=== PATIENT | female | born 1940 | race Caucasian/White ===

== ENCOUNTER → 2017-09-20 15:25 | Outpatient (CLI) | payer MEDICARE, OTHER, SELFPAY ==
[2017-09-20 19:03] LABS: Free T3 2.1 pg/mL (2.18-3.98); T4 Free Direct 1.22 ng/dL (0.76-1.46); Thyroid Stim Hormone (TSH) 0.92 uIU/mL (0.358-3.74)
== END ==
PROVIDERS: Family Provider Family Medicine; PCP Family Medicine
DX: E34.9 Endocrine disorder, unspecified (principal); E55.9 Vitamin D deficiency, unspecified; R53.83 Other fatigue
CPT/HCPCS: 36415; 84439; 84443; 84481

== ENCOUNTER → 2017-12-03 16:08 | Outpatient (CLI) | payer MEDICARE, OTHER, SELFPAY ==
[2017-12-03 17:57] LABS: Free T3 2.5 pg/mL (2.18-3.98); Magnesium 2.1 mg/dL (1.6-2.6); T4 Free Direct 1.07 ng/dL (0.76-1.46); Thyroid Stim Hormone (TSH) 1.02 uIU/mL (0.358-3.74); Vitamin B12 865 pg/mL (211-911); Vitamin D,25 Hydroxy 31.6 ng/mL (29.95-100.01)
== END ==
PROVIDERS: Family Provider Family Medicine; PCP Family Medicine
DX: E34.9 Endocrine disorder, unspecified (principal); E55.9 Vitamin D deficiency, unspecified; R53.83 Other fatigue
CPT/HCPCS: 36415; 82306; 82607; 83735; 84439; 84443; 84481

== ENCOUNTER → 2018-01-16 10:49 | Outpatient (CLI) | payer MEDICARE, OTHER, SELFPAY ==
[2018-01-16 11:57] LABS: Absolute Lymphocyte Count 1.23 X10^3/ul (0.83-4.51); Absolute Neutrophil Count 1.9 X10^3/uL (2.0-7.7); Basophil# 0.02 X10^3/uL; Basophil% 0.5 % (0-1); Eosinophil# 0.17 X10^3/uL; Eosinophils% 4.5 % (0-5); Hematocrit 39.2 % (37-47); Hemoglobin 12.4 g/dl (12.0-15.0); Lymphocyte # 1.23 X10^3/ul (4.0); Lymphocyte % 32.4 % (19-41); Mean Corp Hgb Conc 31.6 g/gl (32-36); Mean Corpuscular Volume 101.3 fL (81-99); Mean Platelet Vol. 11.4 fl (6.2-12.0); Monocyte# 0.52 X10^3/uL; Monocyte% 13.7 % (0-10); Neutrophil # 1.86 X10^3/uL (2.7-7.7); Neutrophil % 48.9 % (47-70); Platelet Count 139 K/mm3 (150-450); RBC Distribution Width CV 12.2 % (11.6-14.6); RBC Distribution Width SD 44.8 fl (35.1-43.9); Red Blood Count 3.87 M/mm3 (4.2-5.4); White Blood Count 3.8 K/mm3 (4.4-11.0)
[2018-01-16 12:03] LABS: POSITIVE COUNT NO; POSITIVE DIFFERENTIAL NO; POSITIVE MORPHOLOGY NO
[2018-01-16 12:09] LABS: Anion Gap 6 (5-15); BUN 15 mg/dL (7-18); Chloride 106 mmol/L (98-107); Creatinine, Serum 0.94 mg/dL (0.55-1.02); EST Glomerular Filtration Rate 61 mL/min (>60); Est Glom Filt Rate - Afr Amer 74 mL/min (>60); Glucose 97 mg/dL (74-106); Potassium 4.2 mmol/L (3.5-5.1); Sodium Level 141 mmol/L (136-145)
== END ==
PROVIDERS: Family Provider Family Medicine; PCP Family Medicine; Visit Provider Family Medicine
DX: R73.03 Prediabetes (principal); R00.2 Palpitations
CPT/HCPCS: 36415; 80048; 85025

== ENCOUNTER → 2018-02-15 14:57 | Outpatient (CLI) | payer MEDICARE, OTHER, SELFPAY ==
[2018-02-15 17:49] LABS: Absolute Lymphocyte Count 1.08 X10^3/ul (0.83-4.51); Absolute Neutrophil Count 2.3 X10^3/uL (2.0-7.7); Basophil# 0.02 X10^3/uL; Basophil% 0.5 % (0-1); Eosinophil# 0.18 X10^3/uL; Eosinophils% 4.5 % (0-5); Hematocrit 38.1 % (37-47); Hemoglobin 12.3 g/dl (12.0-15.0); Lymphocyte # 1.08 X10^3/ul (4.0); Lymphocyte % 27.2 % (19-41); Mean Corp Hgb Conc 32.3 g/gl (32-36); Mean Corpuscular Hgb 33.2 pg (27.0-32.0); Mean Platelet Vol. 11.8 fl (6.2-12.0); Monocyte# 0.43 X10^3/uL; Monocyte% 10.8 % (0-10); Neutrophil # 2.26 X10^3/uL (2.7-7.7); Platelet Count 125 K/mm3 (150-450); RBC Distribution Width CV 11.7 % (11.6-14.6); RBC Distribution Width SD 43.1 fl (35.1-43.9)
[2018-02-15 18:06] LABS: POSITIVE COUNT NO; POSITIVE DIFFERENTIAL NO; POSITIVE MORPHOLOGY NO
== END ==
PROVIDERS: Visit Provider Family Medicine
DX: D61.818 Other pancytopenia (principal)
CPT/HCPCS: 36415; 85025

== ENCOUNTER → 2018-04-08 14:15 | Outpatient (CLI) | payer MEDICARE, OTHER, SELFPAY ==
[2018-04-08 15:33] LABS: Absolute Lymphocyte Count 1.16 X10^3/ul (0.83-4.51); Basophil# 0.01 X10^3/uL; Basophil% 0.3 % (0-1); Eosinophil# 0.16 X10^3/uL; Eosinophils% 4.2 % (0-5); Hemoglobin 12.9 g/dl (12.0-15.0); Lymphocyte # 1.16 X10^3/ul (4.0); Lymphocyte % 30.4 % (19-41); Mean Corp Hgb Conc 32.3 g/gl (32-36); Mean Corpuscular Hgb 32.9 pg (27.0-32.0); Mean Platelet Vol. 12.1 fl (6.2-12.0); Monocyte# 0.47 X10^3/uL; Monocyte% 12.3 % (0-10); Neutrophil # 2.02 X10^3/uL (2.7-7.7); Neutrophil % 52.8 % (47-70); Platelet Count 129 K/mm3 (150-450); RBC Distribution Width CV 11.8 % (11.6-14.6); Red Blood Count 3.92 M/mm3 (4.2-5.4); White Blood Count 3.8 K/mm3 (4.4-11.0)
[2018-04-08 15:34] LABS: POSITIVE COUNT NO; POSITIVE DIFFERENTIAL NO; POSITIVE MORPHOLOGY NO
[2018-04-08 16:06] LABS: Vitamin B12 1867 pg/mL (211-911); Vitamin D,25 Hydroxy 45.4 ng/mL (29.95-100.01)
== END ==
PROVIDERS: Family Provider Family Medicine; PCP Family Medicine; Visit Provider Family Medicine
DX: D61.818 Other pancytopenia (principal); E34.9 Endocrine disorder, unspecified; E55.9 Vitamin D deficiency, unspecified; R53.83 Other fatigue
CPT/HCPCS: 36415; 82306; 82607; 82746; 85025

== ENCOUNTER → 2018-06-27 15:28 | Outpatient (CLI) | payer MEDICARE, OTHER, SELFPAY ==
[2018-06-27 17:15] LABS: Absolute Lymphocyte Count 1.14 X10^3/ul (0.83-4.51); Absolute Neutrophil Count 2.9 X10^3/uL (2.0-7.7); Basophil# 0.02 X10^3/uL; Basophil% 0.4 % (0-1); Eosinophil# 0.25 X10^3/uL; Eosinophils% 5.2 % (0-5); Hematocrit 39.4 % (37-47); Hemoglobin 12.7 g/dl (12.0-15.0); Lymphocyte # 1.14 X10^3/ul (4.0); Lymphocyte % 23.8 % (19-41); Mean Corp Hgb Conc 32.2 g/gl (32-36); Mean Corpuscular Hgb 32.8 pg (27.0-32.0); Mean Corpuscular Volume 101.8 fL (81-99); Mean Platelet Vol. 11.4 fl (6.2-12.0); Monocyte# 0.49 X10^3/uL; Monocyte% 10.2 % (0-10); Neutrophil % 60.4 % (47-70); Platelet Count 151 K/mm3 (150-450); RBC Distribution Width SD 44.4 fl (35.1-43.9); Red Blood Count 3.87 M/mm3 (4.2-5.4); White Blood Count 4.8 K/mm3 (4.4-11.0)
[2018-06-27 17:17] LABS: POSITIVE COUNT NO; POSITIVE DIFFERENTIAL NO; POSITIVE MORPHOLOGY NO
[2018-06-27 17:31] LABS: Free T3 2.3 pg/mL (2.18-3.98); T4 Free Direct 1.18 ng/dL (0.76-1.46); Thyroid Stim Hormone (TSH) 0.93 uIU/mL (0.358-3.74)
== END ==
PROVIDERS: Family Provider Family Medicine; PCP Family Medicine
DX: D72.819 Decreased white blood cell count, unspecified (principal); D69.6 Thrombocytopenia, unspecified; E34.9 Endocrine disorder, unspecified; E55.9 Vitamin D deficiency, unspecified; R53.83 Other fatigue
CPT/HCPCS: 36415; 84439; 84443; 84481; 85025

== ENCOUNTER → 2018-09-12 12:08 | Outpatient (CLI) | payer MEDICARE, OTHER, SELFPAY ==
[2018-09-12 13:35] LABS: ALB/GLOB Ratio 1.2 RATIO (0.9-2.4); AST(SGOT) 20 U/L (15-37); Alanine Aminotransfer ALT/SGPT 29 U/L (13-56); Albumin, Serum 3.6 g/dL (3.2-5.0); Alkaline Phosphatase 68 U/L (45-117); Anion Gap 5 (5-15); BUN 17 mg/dL (7-18); BUN/Creat Ratio 18.4 RATIO (10-20); Calcium,Total 8.8 mg/dL (8.5-10.1); Chloride 109 mmol/L (98-107); Creatinine, Serum 0.92 mg/dL (0.55-1.02); EST Glomerular Filtration Rate 62 mL/min (>60); Est Glom Filt Rate - Afr Amer 75 mL/min (>60); Glucose 97 mg/dL (74-106); Potassium 4.1 mmol/L (3.5-5.1); Protein, Total 6.6 g/dL (6.4-8.2); Sodium Level 143 mmol/L (136-145)
[2018-09-13 16:08] LABS: Folate, Hemolysate Test 333.8 ng/mL (Not Estab.); Folate, RBC (Hct) Test 38.2 % (34.0-46.6)
[2018-09-13 17:11] LABS: Folates, RBC Test 874 ng/mL (>498)
== END ==
PROVIDERS: Family Provider Family Medicine; PCP Family Medicine
DX: E34.9 Endocrine disorder, unspecified (principal); E55.9 Vitamin D deficiency, unspecified; R53.83 Other fatigue
CPT/HCPCS: 36415; 80053; 82747; 85014

== ENCOUNTER → 2019-06-09 | Outpatient (CLI) | payer MEDICARE, OTHER, SELFPAY ==
[2019-06-09 11:43] LABS: Absolute Lymphocyte Count 1.01 X10^3/uL (0.83-4.51); Absolute Neutrophil Count 1.7 X10^3/uL (2.0-7.7); Basophil# 0.02 X10^3/uL; Basophil% 0.6 % (0-1); Eosinophil# 0.13 X10^3/uL; Hematocrit 39.9 % (37-47); Hemoglobin 12.8 g/dL (12.0-15.0); Lymphocyte # 1.01 X10^3/ul (4.0); Lymphocyte % 30.7 % (19-41); Mean Corp Hgb Conc 32.1 g/dL (32-36); Mean Corpuscular Volume 102.8 fL (81-99); Mean Platelet Vol. 10.9 fl (6.2-12.0); Monocyte% 12.2 % (0-10); NRBC Flagged by Analyzer 0 % (0-5); Neutrophil # 1.72 X10^3/uL (2.7-7.7); Neutrophil % 52.2 % (47-70); Platelet Count 129 K/mm3 (150-450); RBC Distribution Width CV 11.8 % (11.6-14.6); RBC Distribution Width SD 44.5 fl (35.1-43.9); Red Blood Count 3.88 M/mm3 (4.2-5.4); White Blood Count 3.3 K/mm3 (4.4-11.0)
[2019-06-09 12:24] LABS: Vitamin B12 730 pg/mL (211-911); Vitamin D,25 Hydroxy 30.1 ng/mL (29.95-100.01)
[2019-06-09 13:59] LABS: ALB/GLOB Ratio 1.1 RATIO (0.9-2.4); AST(SGOT) 23 U/L (15-37); Alanine Aminotransfer ALT/SGPT 31 U/L (13-56); Albumin, Serum 3.5 g/dL (3.2-5.0); Alkaline Phosphatase 69 U/L (45-117); Anion Gap 7 (5-15); BUN 16 mg/dL (7-18); BUN/Creat Ratio 17.9 RATIO (10-20); Calcium,Total 8.8 mg/dL (8.5-10.1); Chloride 110 mmol/L (98-107); EST Glomerular Filtration Rate 65 mL/min (>60); Est Glom Filt Rate - Afr Amer 78 mL/min (>60); Estradiol 17.3 pg/mL; Follicle Stimulating Hormone 71.9 mIU/mL; Free T3 2.3 pg/mL (2.18-3.98); Globulin 3.3 g/dL (2.2-4.2); Glucose 102 mg/dL (74-106); Protein, Total 6.8 g/dL (6.4-8.2); Sodium Level 143 mmol/L (136-145); Thyroid Stim Hormone (TSH) 1.36 uIU/mL (0.358-3.74)
[2019-06-10 09:58] LABS: Thyroid Peroxidase AB 24 IU/mL (0-34)
== END | disposition home or self-care (01) ==
LOC: LAB 11:08
PROVIDERS: Family Provider Family Medicine; PCP Family Medicine
DX: E34.9 Endocrine disorder, unspecified (principal); E55.9 Vitamin D deficiency, unspecified; R53.83 Other fatigue
CPT/HCPCS: 36415; 80053; 82306; 82607; 82670; 83001; 84403; 84439; 84443; 84481; 85025; 86376

== ENCOUNTER 2019-07-21 11:30 | Outpatient (RCR) | payer MEDICARE, OTHER, SELFPAY ==
--- NOTE | 2019-06-25 11:33 | HP.PTEVAL_ITS ---
Patient's Visit Information MARY ZUNIGA is a 78 year old F referred to Physical Therapy by Anand Yoon DO with a diagnosis of R knee OA, R hip OA, lumbar DDD. Date of Evaluation: 06/25/19 Physical Therapist: Yariel Christianson DPT - Visit Plan Frequency: 2x /Week Duration: 6 Weeks Plan: Pt. - Subjective Findings: Pt. is here today for her initial evaluation with diagnosis of R hip OA, R knee OA, and lumbar DDD. Pt. reports having increased pain in both R knee and hip, mostly with getting up and down from chair, and stair negotation. She is having increased pain with sleeping and does wake her up. Pt. denies N/T. Occassional anterior parmar pain. Pt. does have some back pain, dealing with this for many years. Pt. denies any giving out of her legs. Pt. does not use an AD. She is using OTC pain meds with minimal relief. Pt. is hopeful reduce her symptoms in order to get back to all household activites and ADLs without limitations. - Pain R knee Pain Intensity (Out of 10): 0 Pain Intensity Range: 0, 2 R hip Pain Intensity (Out of 10): 2 Pain Intensity Range: 3 Lumbar spine Pain Intensity (Out of 10): 0 Pain Intensity Range: 0, 2 - Objective POSTURE: Pt. has sligth L lateral lean, no lateral shit noted. Pt. has increased wt. shift to L side. PALPATION: Pt. has increased tenderness at R anterior knee and medial joint line. Pt. at lumbar spine including L2-L5, mild tenderness at R piriformis. NO anterior hip pain. NEURO: Pt. has normal sensation adn normal DTR of BLEs. ROM: R knee 0-3-119deg, L knee 0-0-125deg. R hip- flexion 110deg mild increase NW, IR 30deg NE, ER 45deg mild icnrease NW, ext 15deg NE. Lumbar spine- flexion mod loss increase NW, extension mod loss increase NW, SB min loss L NE, SB R mod loss increase NW, rotation min loss bilat NE. Marked tightness n oted throughout B HS. ahd R hip piriformis. MMT: R LE- ankle 5/5 throughout; R knee- ext 4+/5 increase NW, flexion 4/5 NER hip- flexion 4/5, abd 4-/5, ext 4/5; Core- poor. LLE- 4+/5 throuhgout no pain. GAIT: PT. ambulates without AD, but has increased antalgic pattern during R stances phase with trunk sway to R during stance phase. STAIRS: R hip pain with loading ascending, R knee pain with loading descending. - Goals Goal 1:: Pt. to be I with HEP. Goal Time Frame: 4-6 Weeks Goal 2:: Pt. to have increased RLE adn core strength increased by 1/2 grade. Goal Time Frame: 4-6 Weeks Goal 3:: Pt. to have increased lumbar ROM by 25% in all directions without increase in symptoms. Goal Time Frame: 4-6 Weeks Goal 4:: Pt. to to ambulate without increase in symtoms for unlimited distances. Goal Time Frame: 4-6 Weeks Goal 5:: Pt. to sleep throughout the night without increase in symptoms. Goal Time Frame: 4-6 Weeks Goal 6:: Pt. to negotiate 1 flight of stairs with reciprocal pattern with 1 HR withotu increase in symptoms. Goal Time Frame: 4-6 Weeks - Rehabilitation Potential Physical Therapy Diagnosis: Pt. has signs and symptoms consistent with R knee OA, R hip OA, lumbar DDD. Pt. has RLE waekness, core weakness, difficulty with gait, decreased lunmbar ROM, Pt. has increasd pain with lumbar flexion, upright posture improves her symptoms. Pt. would benefit from PT to increase RLE and core strength, improve her her lumbar ROM. Rehabilitation Potential: Good - Anticipated Interventions Patient/Client Instruction: Educate patient on: Condition, Plan of Care, Risk Factors, Benefits of Fitness Program For the Purpose of:: To foster healthy habits, To improve decision making, To facilitate caregiver knowledge, To improve self management, To prevent re- injury, To improve ability to perform tasks related to life management, To improve tolerance to ADL's Therapeutic Exercise to Include: Strength training, Power training, Body mechanics, Postural training, Gait and locomotor training, Passive ROM, Active ROM, Dynamic Lumbar Stabilization, Madisyn Exercises For the Purpose of:: To decrease pain, To decrease swelling/inflammation, To increase ROM, To improve nutrient delivery to tissue, To increase oxygenation perfusion, To improve muscle performance and motor function, To improve ability to perform ADL's, To improve gait and locomotor functions, To improve health of tissue, To decrease soft tissue restriction, To increase flexibility/ROM Manual Therapy Techniques to Include: Mobilization, Passive ROM, Soft tissue mobilization For the Purpose of:: To decrease pain, To decrease swelling/inflammation, To increase ROM, To improve nutrient delivery to tissue, To increase oxygenation perfusion, To improve muscle performance and motor function Ultrasound (thermal/non thermal): Yes For the Purpose of:: To decrease pain, To decrease swelling/inflammation, To increase ROM, To improve nutrient delivery to tissue, To increase oxygenation perfusion, To improve muscle performance and motor function Thank you for the opportunity to evaluate your patient. For Medicare and Medicare HMO plans, please review the plan of care and approve it. It will need to be FAXED BACK to us at [phone] for Medicare purposes. For Medicare only, by signing this I certify the plan of care. Please let me know if there are questions or concerns regarding this plan of care. Physician Signature: Date:
== END 2019-07-21 19:00 | disposition home or self-care (01) ==
LOC: PT 11:30
PROVIDERS: Family Provider Family Medicine; PCP Family Medicine; Referring Provider Orthopaedic Surgery; Visit Provider Orthopaedic Surgery
DX: M16.11 Unilateral primary osteoarthritis, right hip (principal); M17.11 Unilateral primary osteoarthritis, right knee; M51.36 Other intervertebral disc degeneration, lumbar region
CPT/HCPCS: 97110; 97161

== ENCOUNTER → 2019-07-22 06:17 | Outpatient (CLI) | payer MEDICARE, OTHER, SELFPAY ==
[2019-06-26 10:07] VITALS: BMI 28.3
--- NOTE | 2019-07-22 06:18 | ECHOD_ITS ---
Reason For Study: DYSPNEA/SOB Procedure This was a 2D Doppler, Color Flow transthoracic echocardiogram. Exam performed in department. Left Ventricle Normal LV size. Mid cavitary false tendon noted. Left ventricular systolic function is normal. The estimated ejection fraction is 60 %. No regional wall motion abnormalities noted. Right Ventricle Normal RV size. Normal systolic function. Atria The left atrium is mildly enlarged. Normal right atrium. No doppler evidence for ASD. Mitral Valve There is no mitral annular calcification. Normal mitral valve. Trivial mitral valve insufficiency. Tricuspid Valve Normal tricuspid valve. Mild tricuspid valve insufficiency. Aortic Valve Trisinus/trileaflet aortic valve. Normal aortic valve. Trivial eccentric aortic valve insufficiency. Pulmonic Valve The pulmonic valve is not well visualized. Great Vessels Normal sized aortic root. Pericardium/Pleural No pericardial effusion. MMode/2D Measurements & Calculations LVIDd: 4.5 cm IVSd: 0.78 cm Ao root diam: 3.4 cm LVIDs: 2.9 cm LVPWd: 0.89 cm RVDd: 3.2 cm FS: 35.4 % LAV(MOD-bp): 64.5 ml LA A4 area: 19.7 cm2 LA dimension(2D): 3.1 cm LAV(MOD-bp) Indexed: 33.3 ml/m2 LAV(MOD-sp2): 68.0 ml LAV(MOD-sp4): 58.0 ml RA A4 area: 14.3 cm2 Time Measurements MV dec time: 0.23 sec Doppler Measurements & Calculations MV E max mulugeta: 93.9 cm/sec Lat Peak E' Mulugeta: 11.2 cm/sec Med Peak E' Mulugeta: 10.0 cm/sec MV A max mulugeta: 79.5 cm/sec E/E' lat: 8.4 E/E' med: 9.4 MV E/A: 1.2 Ao V2 max: 132.7 cm/sec LV V1 max: 120.9 cm/sec PA V2 max: 77.6 cm/sec Ao max P.0 mmHg LV V1 max P.9 mmHg Interpretation Summary Left ventricular systolic function is normal. The estimated ejection fraction is 60 %. Mid cavitary false tendon noted. The left atrium is mildly enlarged. Trivial mitral valve insufficiency. Mild tricuspid valve insufficiency. Trivial eccentric aortic valve insufficiency. Transmitral diastolic flow velocities suggest diastolic dysfunction (pseudonormal pattern). Ordering Physician: Mohinder Lerma Referring Physician: Joce Rangel Performed By: Nikki Bonilla, MONIQUE, RVT
--- NOTE | 2019-07-22 11:17 | STRESSREP ---
Stress Test Report Date: 07-22-19 Procedure: Exercise tolerance test/imaging study Indications: Chest pain Consent: Per the patient Procedure: The patient exercised on a Suman protocol for 7 minutes and 30 seconds completing Stage II and 1 minute and 30 seconds of Stage III achieving a peak heart rate of 126 bpm (88 % predicted maximal heart rate) with a peak blood pressure 140/80 mmHg and a peak MET capacity of 9 METs. The baseline ECG demonstrated sinus rhythm with PACs. The peak exercise ECG demonstrated somatic/motion artifact with no obvious ECG changes. There were occasional PACs pretest, during exercise, and recovery. The functional capacity was considered good. There was no complaint of chest discomfort during exercise or recovery. The examination was discontinued secondary to dyspnea. Impression: 1. Technically adequate (percent predicted maximal heart rate greater than 85%) exercise tolerance test 2. Peak exercise ECG with somatic/motion artifact with no obvious ECG changes 3. There were occasional PACs pretest, during exercise, and recovery 4. Nuclear images pending Myocardial perfusion imaging study: Technique: The patient was injected with 11.8 mCi of technetium 99m Cardiolite and subsequently rest SPECT Cardiolite nuclear imaging was obtained in the horizontal long, vertical long, and short axis views. The patient exercised on a Suman protocol for 7 minutes and 30 seconds completing Stage II and 1 minute and 30 seconds of Stage III achieving a peak heart rate of 126 bpm (88 % predicted maximal heart rate) with a peak blood pressure 140/80 mmHg and a peak MET capacity of 9 METs. The patient was injected with 34.1 mCi of technetium 99m Cardiolite and subsequently stress SPECT Cardiolite nuclear imaging was obtained in the horizontal long, vertical long, and short axis views. A gated Cardiolite study at peak stress was obtained. Interpretation: Rest and stress SPECT Cardiolite nuclear imaging status post realignment and normalization demonstrates the appearance of relative uniform tracer uptake and myocardial perfusion appearing within normal limits. There is end systolic thickening and brightening. The gated Cardiolite study demonstrates myocardial thickening and inward wall motion. The reported LVEF is 77 %. Impression: 1. Rest and stress SPECT Cardiolite nuclear imaging demonstrate relative uniform tracer uptake and myocardial perfusion appearing within normal limits. 2. The gated Cardiolite study reports an LVEF of 77 %. This note was generated with [employer] software. It may contain incorrect words, spelling, and punctuation that were not noted in checking the note before signing.
== END ==
PROVIDERS: Family Provider Family Medicine; PCP Family Medicine; Referring Provider Internal Medicine Cardiovascular Disease; Visit Provider Internal Medicine Cardiovascular Disease
DX: R07.9 Chest pain, unspecified (principal); R06.09 Other forms of dyspnea
CPT/HCPCS: 78452; 93017; 93306; A9500; A4216

== ENCOUNTER → 2019-09-11 | Outpatient (CLI) | payer MEDICARE, OTHER, SELFPAY ==
[2019-06-26 10:07] VITALS: BMI 28.3
[2019-09-11 17:24] LABS: Absolute Lymphocyte Count 0.95 X10^3/uL (0.83-4.51); Absolute Neutrophil Count 2.6 X10^3/uL (2.0-7.7); Basophil# 0.02 X10^3/uL; Basophil% 0.5 % (0-1); Eosinophils% 2.4 % (0-5); Hematocrit 40.2 % (37-47); Hemoglobin 12.9 g/dL (12.0-15.0); Immature Platelet Fraction 5.6 % (1.0-7.9); Lymphocyte # 0.95 X10^3/ul (4.0); Lymphocyte % 22.7 % (19-41); Mean Corp Hgb Conc 32.1 g/dL (32-36); Mean Corpuscular Hgb 33.2 pg (27.0-32.0); Mean Corpuscular Volume 103.3 fL (81-99); Mean Platelet Vol. 11.7 fl (6.2-12.0); Monocyte# 0.55 X10^3/uL; Monocyte% 13.2 % (0-10); NRBC Flagged by Analyzer 0 % (0-5); Neutrophil # 2.55 X10^3/uL (2.7-7.7); Platelet Count 119 K/mm3 (150-450); RBC Distribution Width CV 11.5 % (11.6-14.6); RBC Distribution Width SD 43.3 fl (35.1-43.9); RET-HE 36.6 pg (30-35); Red Blood Count 3.89 M/mm3 (4.2-5.4); Reticulocyte Count 1.02 % (0.5-1.5); White Blood Count 4.2 K/mm3 (4.4-11.0)
[2019-09-11 18:18] LABS: Free T3 2.4 pg/mL (2.18-3.98); Iron 76 ug/dL (50-170); Iron Binding Capacity,Total 324 ug/dL (250-450); PERCENT IRON SATURATION 23.5 % (15.0-55.0); T4 Free Direct 1.26 ng/dL (0.76-1.46)
[2019-09-17 15:32] LABS: Ferritin 25 ng/mL (8-252)
== END | disposition home or self-care (01) ==
PROVIDERS: PCP Family Medicine
DX: E34.9 Endocrine disorder, unspecified (principal); E55.9 Vitamin D deficiency, unspecified; R53.83 Other fatigue
CPT/HCPCS: 36415; 82728; 82746; 83540; 83550; 84439; 84481; 85025; 85045

== ENCOUNTER → 2019-09-24 14:45 | Outpatient (CLI) | payer MEDICARE, OTHER, SELFPAY ==
[2019-06-26 10:07] VITALS: BMI 28.3
[2019-09-24 14:57] LABS: Absolute Lymphocyte Count 1.06 X10^3/uL (0.83-4.51); Absolute Neutrophil Count 1.8 X10^3/uL (2.0-7.7); Basophil# 0.03 X10^3/uL; Basophil% 0.9 % (0-1); Eosinophil# 0.11 X10^3/uL; Eosinophils% 3.2 % (0-5); Hematocrit 40.1 % (37-47); Hemoglobin 12.9 g/dL (12.0-15.0); Lymphocyte # 1.06 X10^3/ul (4.0); Lymphocyte % 31.2 % (19-41); Mean Corp Hgb Conc 32.2 g/dL (32-36); Mean Corpuscular Hgb 32.7 pg (27.0-32.0); Mean Corpuscular Volume 101.5 fL (81-99); Mean Platelet Vol. 11.1 fl (6.2-12.0); Monocyte# 0.44 X10^3/uL; Monocyte% 12.9 % (0-10); NRBC Flagged by Analyzer 0 % (0-5); Neutrophil # 1.76 X10^3/uL (2.7-7.7); Neutrophil % 51.8 % (47-70); Platelet Count 141 K/mm3 (150-450); RBC Distribution Width CV 11.3 % (11.6-14.6); RBC Distribution Width SD 42.4 fl (35.1-43.9); Red Blood Count 3.95 M/mm3 (4.2-5.4); White Blood Count 3.4 K/mm3 (4.4-11.0)
[2019-09-25 13:06] LABS: Pathologist Review Reviewed
== END ==
LOC: LAB.FUTURE 14:45 → LAB 14:49
PROVIDERS: PCP Family Medicine
DX: E34.9 Endocrine disorder, unspecified (principal); E55.9 Vitamin D deficiency, unspecified; R53.83 Other fatigue
CPT/HCPCS: 85025

== ENCOUNTER → 2020-01-09 | Outpatient (CLI) | payer MEDICARE, OTHER, SELFPAY ==
[2019-06-26 10:07] VITALS: BMI 28.3
[2020-01-09 12:19] LABS: Absolute Lymphocyte Count 1.12 X10^3/uL (0.83-4.51); Absolute Neutrophil Count 1.4 X10^3/uL (2.0-7.7); Basophil# 0.02 X10^3/uL; Basophil% 0.7 % (0-1); Eosinophil# 0.13 X10^3/uL; Eosinophils% 4.2 % (0-5); Hemoglobin 11.9 g/dL (12.0-15.0); Lymphocyte # 1.12 X10^3/ul (4.0); Lymphocyte % 36.5 % (19-41); Mean Corp Hgb Conc 32.2 g/dL (32-36); Mean Corpuscular Hgb 33.4 pg (27.0-32.0); Mean Corpuscular Volume 103.9 fL (81-99); Mean Platelet Vol. 12.1 fl (6.2-12.0); NRBC Flagged by Analyzer 0 % (0-5); Neutrophil % 45.6 % (47-70); Platelet Count 126 K/mm3 (150-450); RBC Distribution Width CV 11.6 % (11.6-14.6); RBC Distribution Width SD 44.4 fl (35.1-43.9); Red Blood Count 3.56 M/mm3 (4.2-5.4); White Blood Count 3.1 K/mm3 (4.4-11.0)
[2020-01-09 12:34] LABS: Vitamin D,25 Hydroxy 34.8 ng/mL
[2020-01-09 13:08] LABS: Hemoglobin A1c 5.6 % (3.8-5.6)
[2020-01-09 13:09] LABS: ALB/GLOB Ratio 1.2 RATIO (0.9-2.4); AST(SGOT) 20 U/L (15-37); Alanine Aminotransfer ALT/SGPT 30 U/L (13-56); Albumin, Serum 3.6 g/dL (3.2-5.0); Alkaline Phosphatase 67 U/L (45-117); Anion Gap 8 (5-15); BUN 16 mg/dL (7-18); BUN/Creat Ratio 18.1 RATIO (10-20); Calcium,Total 8.8 mg/dL (8.5-10.1); Chloride 107 mmol/L (98-107); Cholesterol 197 mg/dL (200); Creatinine, Serum 0.88 mg/dL (0.55-1.02); EST Glomerular Filtration Rate 66 mL/min (>60); Est Glom Filt Rate - Afr Amer 79 mL/min (>60); Globulin 3.1 g/dL (2.2-4.2); Glucose 91 mg/dL (74-106); High Density Lipoprotein 68 mg/dL; Potassium 3.7 mmol/L (3.5-5.1); Protein, Total 6.7 g/dL (6.4-8.2); Sodium Level 141 mmol/L (136-145); Thyroid Stim Hormone (TSH) 1.57 uIU/mL (0.358-3.74); Triglycerides 90 mg/dL; Very Low Density Lipoprotein 18 mg/dL (5-40)
== END | disposition home or self-care (01) ==
LOC: BFHLAB 09:58
PROVIDERS: PCP Family Medicine; Visit Provider Family Medicine
DX: E03.9 Hypothyroidism, unspecified (principal); E55.9 Vitamin D deficiency, unspecified; D69.6 Thrombocytopenia, unspecified; R73.03 Prediabetes
CPT/HCPCS: 36415; 80053; 80061; 82306; 83036; 84443; 85025

== ENCOUNTER → 2020-03-05 | Outpatient (CLI) | payer MEDICARE, OTHER, SELFPAY ==
[2019-06-26 10:07] VITALS: BMI 28.3
[2020-03-05 12:06] LABS: Ferritin 33 ng/mL (8-252); Free T3 2.5 pg/mL (2.18-3.98); Iron 81 ug/dL (50-170); Thyroid Stim Hormone (TSH) 1.19 uIU/mL (0.358-3.74)
== END | disposition home or self-care (01) ==
LOC: LAB 10:32
PROVIDERS: PCP Family Medicine
DX: E34.9 Endocrine disorder, unspecified (principal); E55.9 Vitamin D deficiency, unspecified; R53.83 Other fatigue
CPT/HCPCS: 36415; 82306; 82728; 83540; 84439; 84443; 84481

== ENCOUNTER → 2020-05-26 09:04 | Outpatient (CLI) | payer MEDICARE, OTHER, SELFPAY ==
[2020-04-26 13:33] VITALS: BMI 28.3
[2020-05-26 09:54] LABS: Free T3 2.1 pg/mL (2.18-3.98); T4 Free Direct 1.08 ng/dL (0.76-1.46); Thyroid Stim Hormone (TSH) 1.43 uIU/mL (0.358-3.74)
[2020-06-07 21:06] LABS: T3 Reverse 23.5 ng/dL (9.2-24.1)
== END ==
PROVIDERS: PCP Family Medicine
DX: E34.9 Endocrine disorder, unspecified (principal); E55.9 Vitamin D deficiency, unspecified; R53.83 Other fatigue
CPT/HCPCS: 36415; 84439; 84443; 84481; 84482

== ENCOUNTER → 2020-08-13 14:13 | Outpatient (CLI) | payer MEDICARE, OTHER, SELFPAY ==
[2020-04-26 13:33] VITALS: BMI 28.3
[2020-08-13 14:54] LABS: Absolute Lymphocyte Count 1.03 X10^3/uL (0.83-4.51); Basophil# 0.01 X10^3/uL; Basophil% 0.3 % (0-1); Eosinophil# 0.06 X10^3/uL; Eosinophils% 1.7 % (0-5); Hematocrit 42.2 % (37-47); Hemoglobin 13.8 g/dL (12.0-15.0); Lymphocyte # 1.03 X10^3/ul (4.0); Lymphocyte % 28.6 % (19-41); Mean Corp Hgb Conc 32.7 g/dL (32-36); Mean Corpuscular Hgb 33.2 pg (27.0-32.0); Mean Corpuscular Volume 101.4 fL (81-99); Mean Platelet Vol. 11.6 fl (6.2-12.0); Monocyte# 0.45 X10^3/uL; Monocyte% 12.5 % (0-10); NRBC Flagged by Analyzer 0 % (0-5); Neutrophil # 2.04 X10^3/uL (2.7-7.7); Neutrophil % 56.6 % (47-70); Platelet Count 130 K/mm3 (150-450); RBC Distribution Width CV 11.2 % (11.6-14.6); RBC Distribution Width SD 42.2 fl (35.1-43.9); Red Blood Count 4.16 M/mm3 (4.2-5.4); White Blood Count 3.6 K/mm3 (4.4-11.0)
[2020-08-13 15:43] LABS: Vitamin B12 621 pg/mL (211-911); Vitamin D,25 Hydroxy 34.8 ng/mL
[2020-08-13 16:53] LABS: Hemoglobin A1c 5.7 % (3.8-5.6)
[2020-08-13 16:57] LABS: ALB/GLOB Ratio 1.1 RATIO (0.9-2.4); AST(SGOT) 19 U/L (15-37); Alanine Aminotransfer ALT/SGPT 22 U/L (13-56); Albumin, Serum 3.8 g/dL (3.2-5.0); Alkaline Phosphatase 80 U/L (45-117); Anion Gap 8 (5-15); BUN 16 mg/dL (7-18); BUN/Creat Ratio 16.1 RATIO (10-20); Calcium,Total 9.3 mg/dL (8.5-10.1); Chloride 106 mmol/L (98-107); Creatinine, Serum 0.99 mg/dL (0.55-1.02); EST Glomerular Filtration Rate 57 mL/min (>60); Est Glom Filt Rate - Afr Amer 69 mL/min (>60); Estradiol 15.8 pg/mL; Follicle Stimulating Hormone 76.8 mIU/mL; Free T3 2.6 pg/mL (2.18-3.98); Globulin 3.6 g/dL (2.2-4.2); Glucose 94 mg/dL (74-106); Potassium 4.1 mmol/L (3.5-5.1); Protein, Total 7.4 g/dL (6.4-8.2); Sodium Level 140 mmol/L (136-145); T4 Free Direct 1.42 ng/dL (0.76-1.46); Thyroid Stim Hormone (TSH) 0.25 uIU/mL (0.358-3.74)
[2020-08-15 15:21] LABS: Thyroid Peroxidase AB 14 IU/mL (0-34)
== END ==
PROVIDERS: PCP Family Medicine; Referring Provider Family Medicine; Visit Provider Family Medicine
DX: D61.818 Other pancytopenia (principal); R73.03 Prediabetes; E55.9 Vitamin D deficiency, unspecified
CPT/HCPCS: 36415; 80053; 82306; 82607; 82670; 83001; 83036; 84403; 84439; 84443; 84481; 85025; 86376

== ENCOUNTER → 2020-10-18 15:08 | Outpatient (CLI) | payer MEDICARE, OTHER, SELFPAY ==
[2020-04-26 13:33] VITALS: BMI 28.3
[2020-10-18 18:04] LABS: Free T3 1.9 pg/mL (2.18-3.98); T4 Free Direct 1.26 ng/dL (0.76-1.46); Thyroid Stim Hormone (TSH) 0.83 uIU/mL (0.358-3.74)
== END ==
PROVIDERS: PCP Family Medicine
DX: E34.9 Endocrine disorder, unspecified (principal); E55.9 Vitamin D deficiency, unspecified; R53.83 Other fatigue
CPT/HCPCS: 36415; 84439; 84443; 84481

== ENCOUNTER → 2020-11-23 12:59 | Outpatient (CLI) | payer MEDICARE, OTHER, SELFPAY ==
[2020-04-26 13:33] VITALS: BMI 28.3
[2020-11-22 11:03] VITALS: BMI 27.7
--- NOTE | 2020-11-23 13:02 | CDU_ITS ---
Reason For Study: amaurosis fugax Rt. Velocities/BP Lt. Velocities/BP Prox CCA 102.1/23.9 cm/sec. Prox CCA 93.0/23.9 cm/sec. Mid CCA 98.2/27.8 cm/sec. Mid CCA 87.8/29.1 cm/sec. Dist CCA 93.0/22.6 cm/sec. Dist CCA 86.5/23.9 cm/sec. Prox ICA 61.7/14.7 cm/sec. Prox ICA 52.6/17.3 cm/sec. Mid ICA 53.9/22.6 cm/sec. Mid ICA 52.6/21.3 cm/sec. Dist ICA 109.9/35.6 cm/sec. Dist ICA 86.5/34.3 cm/sec. Rt. ICA/CCA = 1.1. Lt. ICA/CCA = 1.0. Prox ECA 59.1/8.2 cm/sec. Prox ECA 73.4/21.3 cm/sec. Rt. Vert. 42.1/17.3 cm/sec. Lt. Vert. 48.6/16.0 cm/sec. Right Extracranial There is intimal thickening but no significant atherosclerotic plaque noted in the right common carotid artery. There is intimal thickening but no significant atherosclerotic plaque noted in the right internal carotid artery. There is intimal thickening but no significant atherosclerotic plaque noted in the right external carotid artery. Antegrade flow is noted in the right vertebral artery. Left Extracranial There is intimal thickening but no significant atherosclerotic plaque noted in the left common carotid artery. There is intimal thickening but no significant atherosclerotic plaque noted in the left internal carotid artery. There is intimal thickening but no significant atherosclerotic plaque noted in the left external carotid artery. Antegrade flow is noted in the left vertebral artery. Procedure Carotid Duplex [id number]. This is a Carotid Duplex examination using B-mode, color flow and specral Doppler. The exam was diagnostic. Exam performed in department. VL/Carotid Duplex Ultrasound Interpretation Summary No significant atherosclerotic plaque or stenosis noted in the internal carotid arteries bilaterally. Flow within the vertebral arteries is antegrade bilaterally. Ordering Physician: Kirit Granados Performed By: Isiah Rodriguez RVT
== END ==
PROVIDERS: PCP Family Medicine; Referring Provider Ophthalmology; Visit Provider Ophthalmology
DX: G45.3 Amaurosis fugax (principal)
CPT/HCPCS: 93880

== ENCOUNTER → 2020-11-29 16:29 | Outpatient (CLI) | payer MEDICARE, OTHER, SELFPAY ==
[2020-11-22 11:03] VITALS: BMI 27.7
[2020-11-29 17:37] LABS: Absolute Neutrophil Count 2.5 X10^3/uL (2.0-7.7); Basophil# 0.02 X10^3/uL; Basophil% 0.5 % (0-1); Eosinophil# 0.09 X10^3/uL; Eosinophils% 2.2 % (0-5); Hematocrit 40.2 % (37-47); Hemoglobin 12.6 g/dL (12.0-15.0); Lymphocyte % 24.3 % (19-41); Mean Corp Hgb Conc 31.3 g/dL (32-36); Mean Corpuscular Hgb 32.2 pg (27.0-32.0); Mean Corpuscular Volume 102.8 fL (81-99); Mean Platelet Vol. 11.5 fl (6.2-12.0); Monocyte# 0.48 X10^3/uL; Monocyte% 11.7 % (0-10); NRBC Flagged by Analyzer 0 % (0-5); Neutrophil # 2.52 X10^3/uL (2.7-7.7); Neutrophil % 61.1 % (47-70); Platelet Count 149 K/mm3 (150-450); RBC Distribution Width CV 11.8 % (11.6-14.6); RBC Distribution Width SD 44.5 fl (35.1-43.9); Red Blood Count 3.91 M/mm3 (4.2-5.4); White Blood Count 4.1 K/mm3 (4.4-11.0)
[2020-11-29 18:11] LABS: Free T3 2.2 pg/mL (2.18-3.98); T4 Free Direct 1.28 ng/dL (0.76-1.46); Thyroid Stim Hormone (TSH) 0.39 uIU/mL (0.358-3.74)
[2020-11-29 18:30] LABS: Vitamin D,25 Hydroxy 35.3 ng/mL
[2020-11-30 14:45] LABS: Vitamin B12 467 pg/mL (211-911)
== END ==
PROVIDERS: PCP Family Medicine
DX: D69.6 Thrombocytopenia, unspecified (principal); E34.9 Endocrine disorder, unspecified; E55.9 Vitamin D deficiency, unspecified; R53.83 Other fatigue; E03.9 Hypothyroidism, unspecified; D72.819 Decreased white blood cell count, unspecified
CPT/HCPCS: 36415; 82306; 82607; 84439; 84443; 84481; 85025

== ENCOUNTER → 2021-05-25 15:23 | Outpatient (CLI) | payer MEDICARE, OTHER, SELFPAY ==
[2021-05-25 16:25] LABS: Absolute Lymphocyte Count 1.08 X10^3/uL (0.83-4.51); Absolute Neutrophil Count 1.9 X10^3/uL (2.0-7.7); Basophil# 0.02 X10^3/uL; Basophil% 0.6 % (0-1); Eosinophils% 2.8 % (0-5); Hematocrit 38.3 % (37-47); Hemoglobin 12.2 g/dL (12.0-15.0); Lymphocyte # 1.08 X10^3/ul (0.83-4.51); Lymphocyte % 29.8 % (19-41); Mean Corp Hgb Conc 31.9 g/dL (32-36); Mean Corpuscular Volume 103.5 fL (81-99); Mean Platelet Vol. 11.7 fl (6.2-12.0); Monocyte# 0.47 X10^3/uL; NRBC Flagged by Analyzer 0 % (0-5); Neutrophil # 1.94 X10^3/uL (2.7-7.7); Neutrophil % 53.5 % (47-70); Platelet Count 126 K/mm3 (150-450); RBC Distribution Width CV 11.6 % (11.6-14.6); RBC Distribution Width SD 43.9 fl (35.1-43.9); White Blood Count 3.6 K/mm3 (4.4-11.0)
[2021-05-25 16:53] LABS: Vitamin B12 600 pg/mL (211-911); Vitamin D,25 Hydroxy 37.6 ng/mL
[2021-05-25 17:01] LABS: Free T3 2.3 pg/mL (2.18-3.98); T4 Free Direct 1.33 ng/dL (0.76-1.46); Thyroid Stim Hormone (TSH) 0.23 uIU/mL (0.358-3.74)
== END ==
PROVIDERS: PCP Family Medicine
DX: D69.6 Thrombocytopenia, unspecified (principal); D72.819 Decreased white blood cell count, unspecified; E03.9 Hypothyroidism, unspecified; E34.9 Endocrine disorder, unspecified; E55.9 Vitamin D deficiency, unspecified; R53.83 Other fatigue
CPT/HCPCS: 36415; 82306; 82607; 84439; 84443; 84481; 85025

== ENCOUNTER → 2021-09-14 16:23 | Outpatient (CLI) | payer MEDICARE, OTHER, SELFPAY ==
[2021-09-14 17:17] LABS: Absolute Lymphocyte Count 0.99 X10^3/uL (0.83-4.51); Absolute Neutrophil Count 2.4 X10^3/uL (2.0-7.7); Basophil# 0.01 X10^3/uL; Basophil% 0.2 % (0-1); Eosinophil# 0.22 X10^3/uL; Eosinophils% 5.5 % (0-5); Hematocrit 39.8 % (37-47); Hemoglobin 13.2 g/dL (12.0-15.0); Lymphocyte # 0.99 X10^3/ul (0.83-4.51); Lymphocyte % 24.6 % (19-41); Mean Corp Hgb Conc 33.2 g/dL (32-36); Mean Corpuscular Hgb 33.9 pg (27.0-32.0); Mean Corpuscular Volume 102.3 fL (81-99); Mean Platelet Vol. 11.1 fl (6.2-12.0); Monocyte# 0.43 X10^3/uL; Monocyte% 10.7 % (0-10); NRBC Flagged by Analyzer 0 % (0-5); Neutrophil # 2.36 X10^3/uL (2.7-7.7); Neutrophil % 58.8 % (47-70); Platelet Count 141 K/mm3 (150-450); RBC Distribution Width CV 11.7 % (11.6-14.6); RBC Distribution Width SD 43.9 fl (35.1-43.9); Red Blood Count 3.89 M/mm3 (4.2-5.4)
[2021-09-14 17:27] LABS: Hemoglobin A1c 5.7 % (3.8-5.6)
[2021-09-14 17:39] LABS: Insulin 16.2 mU/L (2.6-37.6); Vitamin B12 608 pg/mL (211-911); Vitamin D,25 Hydroxy 34.8 ng/mL
[2021-09-14 17:45] LABS: AST(SGOT) 25 U/L (15-37); Alanine Aminotransfer ALT/SGPT 35 U/L (13-56); Albumin, Serum 3.5 g/dL (3.2-5.0); Alkaline Phosphatase 78 U/L (45-117); Anion Gap 4 (5-15); BUN 17 mg/dL (7-18); BUN/Creat Ratio 18.1 RATIO (10-20); Calcium,Total 9.4 mg/dL (8.5-10.1); Chloride 107 mmol/L (98-107); Creatinine, Serum 0.94 mg/dL (0.55-1.02); EST Glomerular Filtration Rate 61 mL/min (>60); Est Glom Filt Rate - Afr Amer 74 mL/min (>60); Estradiol 28.6 pg/mL; Follicle Stimulating Hormone 67.9 mIU/mL; Free T3 1.9 pg/mL (2.18-3.98); Globulin 3.5 g/dL (2.2-4.2); Glucose 84 mg/dL (74-106); Potassium 4.1 mmol/L (3.5-5.1); Sodium Level 140 mmol/L (136-145); T4 Free Direct 1.11 ng/dL (0.76-1.46); Thyroid Stim Hormone (TSH) 0.98 uIU/mL (0.358-3.74)
[2021-09-19 14:09] LABS: DHEA Sulfate 66.7 ug/dL (13.9-142.8); Testosterone, % Free 1.28 % (0.50-2.80); Testosterone, Free 0.09 ng/dL (0.10-0.85); Testosterone, Total 7 ng/dL (2-45)
[2021-09-19 20:22] LABS: Thyroid Peroxidase AB 13 IU/mL (0-34)
== END ==
PROVIDERS: PCP Family Medicine
DX: E34.9 Endocrine disorder, unspecified (principal); E55.9 Vitamin D deficiency, unspecified; R53.83 Other fatigue
CPT/HCPCS: 36415; 80053; 82306; 82607; 82627; 82670; 83001; 83036; 83525; 84402; 84403; 84439; 84443; 84481; 85025; 86376; 82626

== ENCOUNTER → 2021-10-29 09:43 | Outpatient (CLI) | payer MEDICARE, OTHER, SELFPAY ==
[2021-10-29 10:41] LABS: Immature Platelet Fraction 5.8 % (1.0-7.9); Platelet Count 123 K/mm3 (150-450); RET-HE 37.1 pg (30-35); Reticulocyte Count 1.11 % (0.5-1.5)
[2021-10-29 11:29] LABS: CRP, High Sensitivity Cardiac 0.47 mg/L; Ferritin 21 ng/mL (8-252); Iron 89 ug/dL (50-170); Iron Binding Capacity,Total 322 ug/dL (250-450)
[2021-11-04 13:30] LABS: Methylmalonic Acid Bld 134 nmol/L (0-378)
== END ==
PROVIDERS: PCP Family Medicine
DX: D69.6 Thrombocytopenia, unspecified (principal); E55.9 Vitamin D deficiency, unspecified; R53.83 Other fatigue; D64.9 Anemia, unspecified; E03.9 Hypothyroidism, unspecified; E78.00 Pure hypercholesterolemia, unspecified
CPT/HCPCS: 36415; 82728; 82746; 83540; 83550; 83921; 85045; 86141

== ENCOUNTER → 2022-04-19 | Outpatient (CLI) | payer MEDICARE, OTHER, SELFPAY ==
[2022-04-19 16:16] LABS: Absolute Lymphocyte Count 1.18 X10^3/uL (0.83-4.51); Absolute Neutrophil Count 2.3 X10^3/uL (2.0-7.7); Basophil# 0.03 X10^3/uL; Basophil% 0.7 % (0-1); Eosinophil# 0.22 X10^3/uL; Eosinophils% 5.3 % (0-5); Hematocrit 38.2 % (37-47); Hemoglobin 12.6 g/dL (12.0-15.0); Lymphocyte # 1.18 X10^3/ul (0.83-4.51); Lymphocyte % 28.2 % (19-41); Mean Corpuscular Hgb 34.1 pg (27.0-32.0); Mean Corpuscular Volume 103.2 fL (81-99); Monocyte# 0.49 X10^3/uL; Monocyte% 11.7 % (0-10); NRBC Flagged by Analyzer 0 % (0-5); Neutrophil # 2.25 X10^3/uL (2.7-7.7); Neutrophil % 53.9 % (47-70); Platelet Count 135 K/mm3 (150-450); RBC Distribution Width CV 11.7 % (11.6-14.6); RBC Distribution Width SD 44.4 fl (35.1-43.9); White Blood Count 4.2 K/mm3 (4.4-11.0)
[2022-04-19 16:41] LABS: T4 Free Direct 1.15 ng/dL (0.76-1.46); Thyroid Stim Hormone (TSH) 0.76 uIU/mL (0.358-3.74)
== END | disposition home or self-care (01) ==
LOC: LAB 15:49
PROVIDERS: PCP Family Medicine
DX: D69.6 Thrombocytopenia, unspecified (principal); E55.9 Vitamin D deficiency, unspecified; R53.83 Other fatigue; E03.9 Hypothyroidism, unspecified; D51.8 Other vitamin B12 deficiency anemias
CPT/HCPCS: 36415; 84439; 84443; 84481; 85025

== ENCOUNTER → 2022-09-18 | Outpatient (CLI) | payer MEDICARE, OTHER, SELFPAY ==
[2022-09-18 18:23] LABS: Free T3 2.1 pg/mL (2.18-3.98); T4 Free Direct 1.23 ng/dL (0.76-1.46); Thyroid Stim Hormone (TSH) 0.71 uIU/mL (0.358-3.74)
== END | disposition home or self-care (01) ==
LOC: LAB 15:24
PROVIDERS: PCP Family Medicine
DX: E03.9 Hypothyroidism, unspecified (principal); D69.6 Thrombocytopenia, unspecified; D64.9 Anemia, unspecified; R53.83 Other fatigue; D51.8 Other vitamin B12 deficiency anemias; E55.9 Vitamin D deficiency, unspecified; E34.9 Endocrine disorder, unspecified
CPT/HCPCS: 36415; 84439; 84443; 84481

== ENCOUNTER → 2022-09-19 | Outpatient (CLI) | payer MEDICARE, OTHER, SELFPAY ==
[2022-09-19 10:46] LABS: Absolute Lymphocyte Count 1.24 X10^3/uL (0.83-4.51); Absolute Neutrophil Count 1.6 X10^3/uL (2.0-7.7); Basophil# 0.03 X10^3/uL; Basophil% 0.9 % (0-1); Eosinophils% 5.8 % (0-5); Hematocrit 40.1 % (37-47); Hemoglobin 12.6 g/dL (12.0-15.0); Lymphocyte # 1.24 X10^3/ul (0.83-4.51); Lymphocyte % 35.9 % (19-41); Mean Corp Hgb Conc 31.4 g/dL (32-36); Mean Corpuscular Hgb 33.1 pg (27.0-32.0); Mean Corpuscular Volume 105.2 fL (81-99); Mean Platelet Vol. 10.8 fl (6.2-12.0); Monocyte% 11.6 % (0-10); NRBC Flagged by Analyzer 0 % (0-5); Neutrophil # 1.57 X10^3/uL (2.7-7.7); Neutrophil % 45.5 % (47-70); Platelet Count 124 K/mm3 (150-450); RBC Distribution Width CV 11.5 % (11.6-14.6); RBC Distribution Width SD 44.3 fl (35.1-43.9); Red Blood Count 3.81 M/mm3 (4.2-5.4); White Blood Count 3.5 K/mm3 (4.4-11.0)
[2022-09-19 11:03] LABS: Insulin 4.5 mU/L (2.6-37.6); Vitamin B12 696 pg/mL (211-911)
[2022-09-19 11:07] LABS: Hemoglobin A1c 5.5 % (3.8-5.6)
[2022-09-19 11:36] LABS: ALB/GLOB Ratio 1.1 RATIO (0.9-2.4); AST(SGOT) 19 U/L (15-37); Alanine Aminotransfer ALT/SGPT 22 U/L (13-56); Albumin, Serum 3.6 g/dL (3.2-5.0); Alkaline Phosphatase 64 U/L (45-117); Anion Gap 5 (5-15); BUN 15 mg/dL (7-18); BUN/Creat Ratio 15.8 RATIO (10-20); Calcium,Total 9.3 mg/dL (8.5-10.1); Chloride 106 mmol/L (98-107); Creatinine, Serum 0.95 mg/dL (0.55-1.02); EST Glomerular Filtration Rate 60 mL/min (>60); Est Glom Filt Rate - Afr Amer 73 mL/min (>60); Estradiol 48.7 pg/mL; Ferritin 23 ng/mL (8-252); Follicle Stimulating Hormone 75.7 mIU/mL; GGTP 13 U/L (5-55); Globulin 3.3 g/dL (2.2-4.2); Glucose 98 mg/dL (74-106); Potassium 3.7 mmol/L (3.5-5.1); Protein, Total 6.9 g/dL (6.4-8.2); Sodium Level 140 mmol/L (136-145)
[2022-09-22 12:09] LABS: DHEA Sulfate 69.1 ug/dL (13.9-142.8); Testosterone, % Free 1.17 % (0.50-2.80); Testosterone, Free 0.21 ng/dL (0.10-0.85); Testosterone, Total 18 ng/dL (2-45)
[2022-09-22 13:32] LABS: Thyroid Peroxidase AB 11 IU/mL (0-34)
== END | disposition home or self-care (01) ==
PROVIDERS: PCP Internal Medicine
DX: E34.9 Endocrine disorder, unspecified (principal); D69.6 Thrombocytopenia, unspecified; E55.9 Vitamin D deficiency, unspecified; R53.83 Other fatigue; D64.9 Anemia, unspecified; E03.9 Hypothyroidism, unspecified; D51.8 Other vitamin B12 deficiency anemias; H73.0 Acute myringitis; R73.09 Other abnormal glucose; R94.5 Abnormal results of liver function studies
CPT/HCPCS: 36415; 80053; 82306; 82607; 82627; 82670; 82728; 82977; 83001; 83036; 83525; 84402; 84403; 85025; 86376; 82626

== ENCOUNTER → 2023-04-10 | Outpatient (CLI) | payer MEDICARE, OTHER, SELFPAY ==
[2023-04-10 11:12] LABS: Absolute Lymphocyte Count 1.43 X10^3/uL (0.83-4.51); Absolute Neutrophil Count 1.9 X10^3/uL (2.0-7.7); Basophil# 0.03 X10^3/uL; Basophil% 0.7 % (0-1); Eosinophil# 0.24 X10^3/uL; Eosinophils% 5.9 % (0-5); Hematocrit 40.7 % (37-47); Hemoglobin 12.7 g/dL (12.0-15.0); Lymphocyte # 1.43 X10^3/ul (0.83-4.51); Lymphocyte % 34.9 % (19-41); Mean Corp Hgb Conc 31.2 g/dL (32-36); Mean Corpuscular Hgb 32.7 pg (27.0-32.0); Mean Corpuscular Volume 104.9 fL (81-99); Mean Platelet Vol. 11.7 fl (6.2-12.0); Monocyte% 12.2 % (0-10); NRBC Flagged by Analyzer 0 % (0-5); Neutrophil % 46.3 % (47-70); Platelet Count 122 K/mm3 (150-450); RBC Distribution Width CV 11.7 % (11.6-14.6); RBC Distribution Width SD 45.1 fl (35.1-43.9); Red Blood Count 3.88 M/mm3 (4.2-5.4); White Blood Count 4.1 K/mm3 (4.4-11.0)
[2023-04-10 11:38] LABS: Vitamin B12 426 pg/mL (211-911); Vitamin D,25 Hydroxy 34.7 ng/mL
[2023-04-10 11:48] LABS: Hemoglobin A1c 5.7 % (3.8-5.6)
[2023-04-10 11:54] LABS: ALB/GLOB Ratio 1.1 RATIO (0.9-2.4); AST(SGOT) 14 U/L (15-37); Alanine Aminotransfer ALT/SGPT 20 U/L (13-56); Albumin, Serum 3.5 g/dL (3.2-5.0); Alkaline Phosphatase 75 U/L (45-117); Anion Gap 2 (5-15); BUN 18 mg/dL (7-18); Calcium,Total 8.9 mg/dL (8.5-10.1); Chloride 109 mmol/L (98-107); Cholesterol 230 mg/dL (200); EST Glomerular Filtration Rate 64 mL/min (>60); Est Glom Filt Rate - Afr Amer 77 mL/min (>60); Free T3 2.1 pg/mL (2.18-3.98); Globulin 3.3 g/dL (2.2-4.2); Glucose 98 mg/dL (74-106); High Density Lipoprotein 86 mg/dL; Potassium 3.9 mmol/L (3.5-5.1); Protein, Total 6.8 g/dL (6.4-8.2); Sodium Level 141 mmol/L (136-145); T4 Free Direct 1.11 ng/dL (0.76-1.46); Thyroid Stim Hormone (TSH) 1.22 uIU/mL (0.358-3.74); Triglycerides 88 mg/dL; Very Low Density Lipoprotein 18 mg/dL (5-40)
== END | disposition home or self-care (01) ==
LOC: LAB 10:28
PROVIDERS: PCP Internal Medicine; Referring Provider Internal Medicine; Visit Provider Internal Medicine
DX: I10 Essential (primary) hypertension (principal); I47.20 Ventricular tachycardia, unspecified; E78.2 Mixed hyperlipidemia; E03.9 Hypothyroidism, unspecified; E55.9 Vitamin D deficiency, unspecified; E53.8 Deficiency of other specified B group vitamins; Z13.220 Encounter for screening for lipoid disorders; R73.9 Hyperglycemia, unspecified
CPT/HCPCS: 36415; 80053; 80061; 82306; 82607; 83036; 84439; 84443; 84481; 85025

== ENCOUNTER 2023-09-05 11:27 | Outpatient (CLI) | payer MEDICARE, OTHER, SELFPAY ==
[2023-09-05 12:38] LABS: Absolute Lymphocyte Count 0.76 X10^3/uL (0.83-4.51); Absolute Neutrophil Count 1.5 X10^3/uL (2.0-7.7); Basophil# 0.02 X10^3/uL; Basophil% 0.7 % (0-1); Eosinophil# 0.07 X10^3/uL; Eosinophils% 2.5 % (0-5); Hemoglobin 12.2 g/dL (12.0-15.0); Lymphocyte # 0.76 X10^3/ul (0.83-4.51); Mean Corp Hgb Conc 32.1 g/dL (32-36); Mean Corpuscular Volume 102.7 fL (81-99); Mean Platelet Vol. 11.3 fl (6.2-12.0); Monocyte# 0.42 X10^3/uL; Monocyte% 14.9 % (0-10); NRBC Flagged by Analyzer 0 % (0-5); Neutrophil # 1.53 X10^3/uL (2.7-7.7); Neutrophil % 54.5 % (47-70); Platelet Count 115 K/mm3 (150-450); RBC Distribution Width CV 11.9 % (11.6-14.6); White Blood Count 2.8 K/mm3 (4.4-11.0)
[2023-09-05 13:04] LABS: Insulin 4.9 mU/L (2.6-37.6); Vitamin B12 504 pg/mL (211-911); Vitamin D,25 Hydroxy 82.1 ng/mL
[2023-09-05 13:06] LABS: Hemoglobin A1c 5.8 % (3.8-5.6)
[2023-09-05 16:27] LABS: ALB/GLOB Ratio 1.1 RATIO (0.9-2.4); AST(SGOT) 20 U/L (15-37); Alanine Aminotransfer ALT/SGPT 25 U/L (13-56); Albumin, Serum 3.6 g/dL (3.2-5.0); Alkaline Phosphatase 67 U/L (45-117); Anion Gap 5 (5-15); BUN 18 mg/dL (7-18); BUN/Creat Ratio 21.6 RATIO (10-20); CRP, High Sensitivity Cardiac 0.84 mg/L; Calcium,Total 9.5 mg/dL (8.5-10.1); Chloride 109 mmol/L (98-107); Creatinine, Serum 0.83 mg/dL (0.55-1.02); EST Glomerular Filtration Rate 70 mL/min (>60); Est Glom Filt Rate - Afr Amer 84 mL/min (>60); Estradiol < 11.0 pg/mL; Ferritin 29 ng/mL (8-252); Follicle Stimulating Hormone 69.1 mIU/mL; Free T3 2.3 pg/mL (2.18-3.98); GGTP 14 U/L (5-55); Globulin 3.2 g/dL (2.2-4.2); Glucose 103 mg/dL (74-106); Potassium 3.9 mmol/L (3.5-5.1); Protein, Total 6.8 g/dL (6.4-8.2); Sodium Level 142 mmol/L (136-145); T4 Free Direct 1.32 ng/dL (0.76-1.46); Thyroid Stim Hormone (TSH) 1.07 uIU/mL (0.358-3.74)
[2023-09-14 13:08] LABS: DHEA Sulfate 78.4 ug/dL (13.9-142.8); Testosterone, % Free 2.22 % (0.50-2.80); Testosterone, Free < 0.07 ng/dL (0.10-0.85); Testosterone, Total < 3 ng/dL (2-45)
== END 2023-09-05 23:59 | disposition home or self-care (01) ==
LOC: LAB 11:29
PROVIDERS: PCP Internal Medicine
DX: D69.6 Thrombocytopenia, unspecified (principal); E55.9 Vitamin D deficiency, unspecified; R53.83 Other fatigue; E03.9 Hypothyroidism, unspecified; D51.8 Other vitamin B12 deficiency anemias; H73.0 Acute myringitis; R73.09 Other abnormal glucose; R94.5 Abnormal results of liver function studies; R07.9 Chest pain, unspecified
CPT/HCPCS: 36415; 80053; 82306; 82607; 82627; 82670; 82728; 82977; 83001; 83036; 83525; 84402; 84403; 84439; 84443; 84481; 85025; 86141; 93017; 93350; 82626

== ENCOUNTER → 2023-09-05 | Outpatient (CLI) | payer MEDICARE, OTHER, SELFPAY ==
--- NOTE | 2023-09-05 10:32 | STE_ITS ---
Reason For Study: CHEST PAIN Stress Results Protocol: Suman Protocol Maximum Predicted HR: 137 bpm Target HR: 116 bpm % Maximum Predicted HR: 88 % DurationHeart Rate Stage (mm:ss) (bpm) BP Comment BASELINE 67 148/80 STAGE 1 3:00 95 148/70 STAGE 2 3:00 112 152/68 STAGE 3 1:46 120 / SOB NOTED RECOVERY 69 130/70 Stress Duration: 7:46 mm:ss Maximum Stress HR: 120 bpm Baseline Echocardiogram Findings The estimated ejection fraction is 60 %. EF after exercise is 70%. Stress Echo Wall motion Data Resting WM Intermediate WM Stress WM Resting Wall Motion Wall Motion Stress No regional wall motion No regional wall motion abnormalities noted. abnormalities noted. EKG Data The baseline ECG displays normal sinus rhythm. No significant ischemic changes. Symptoms with Stress The patient experinced No chest pain . ECHO/Stress Test Echo w/o Contrast Interpretation Summary The estimated ejection fraction is 60 %. Stress echo is negative for exercise-induced chest pain or EKG or echocardiogra phic changes of ischemia Functional capacity is excellent for age Ordering Physician: Anand Anderson Referring Physician: Anand Anderson Performed By: Carmen Barakat, MONIQUE, RVT
--- OUTSIDE RECORDS SUMMARY | 2023-09-05 11:17 | XMS RPT_ITS | CCD ---
Author Name Unknown Address [address] [place] [address] Organization [facility] Care Team Providers Care Musical Instrument Maker Or Repairer Name Role Phone RUBEN, JASMINE E Unavailable Unavailable RUBEN, JASMINE E Unavailable Unavailable RUBEN, JASMINE E Unavailable Unavailable RUBEN, JASMINE E Unavailable Unavailable RUBEN, JASMINE E Unavailable Unavailable RUBEN, JASMINE Unavailable Unavailable RUBEN, JASMINE Unavailable Unavailable RUBEN, JASMINE Unavailable Unavailable RUBEN, JASMINE Unavailable Unavailable JUAN CARLOS, JOCE Unavailable Unavailable RUBEN, JASMINE Unavailable Unavailable RUBEN, JASMINE Unavailable Unavailable JUAN CARLOS, JOCE Unavailable Unavailable RUBEN, JASMINE Unavailable Unavailable JUAN CARLOS, JOCE Unavailable Unavailable Juan Carlos Joce OCAMPO Primary Care Provider Nathan, Triston S Unavailable Joce Rangel MD Primary Care Provider Nathan, Brimson S Unavailable Gonzalo Brizuela MD Primary Care Provider MOHINDER FRIEDMAN Attending Unavailable JOCE RANGEL Primary Care Unavailable MOHINDER FRIEDMAN A Referring Unavailable JOCE RANGEL Primary Care Unavailable MOHINDER FRIEDMAN Attending Unavailable JOCE RANGEL Referring Unavailable JOCE RANGEL Primary Care Unavailable GONZALO BRIZUELA Primary Care Unavailable MOHINDER FRIEDMAN A Attending Unavailable IDALIA MOHINDER A Referring Unavailable GONZALO BRIZUELA Primary Care Unavailable ZACKI MOHINDER A Referring Unavailable IDALAI MOHINDER A Attending Unavailable GONZALO BRIZUELA Primary Care Unavailable IDALIA MOHINDER A Referring Unavailable Allergies Allergy Classification Reported Allergen(s) Allergy Type Date of Onset Reaction(s) Facility (10 sources) aspirin; Translations: [ASPIRIN] Drug Allergy 04-24-20 05 [facility] (10 sources) celecoxib; Translations: [CELECOXIB] Drug Allergy 08-06-19 Shortness of Breath [facility] (10 sources) clarithromycin; Translations: [CLARITHROMYCIN] Drug Allergy 04-24-20 Diarrhea [facility] (10 sources) NSAIDs; Translations: [NSAIDS (NON-STEROIDAL ANTI-INFLAMMATORY DRUG)] Propensity to adverse reactions to drug (disorder) 04-24-20 GI Upset [facility] (10 sources) sulfamethoxazole / trimethoprim; Translations: [SULFAMETHOXAZOLE-T RIMETHOPRIM] Drug Allergy 07-20-20 Rash [facility] (10 sources) Sulfonamides (Antibiotic); Translations: [SULFA (SULFONAMIDE ANTIBIOTICS)] Propensity to adverse reactions to drug (disorder) 09-14-19 [facility] (10 sources) ERGOTAMINE-CAFFEINE ; Translations: [ERGOTAMINE-CAFFEIN E] Propensity to adverse reactions to drug (disorder) 04-24-20 [facility] Medications Current Medications Medication Drug Class(es) Dates Sig (Normalized) Sig (Original) LORazepam 0.5 mg oral tablet (1 source) Benzodiazepine Start: 09-25-2022 End: 09-25-2022 take 1 tablet by mouth once, then take 1 tablet by mouth every hour LORazepam (ATIVAN) 0.5 mg Indications: Other pancytopenia (HCC) Take 1 tablet by mouth one time only for 1 dose. about 1 hour prior to bone marrow biopsy. 1 tablet 0 09/25/2022 09/25/2022 Active Completed/Discontinued Medications Medication Drug Class(es) Dates Sig (Normalized) Sig (Original) ascorbic acid 500 mg oral tablet (7 sources) Vitamin C Start: 08-09-2012 take 0.5-1 tablets by mouth once daily as needed ascorbic acid (VITAMIN C) 500 mg tablet Take 0.5-1 tablets by mouth once daily as needed. 0 08/09/2012 Active Problems Active Problems Problem Classification Problem Date Documented Date Episodic/Chronic Cardiac dysrhythmias (7 sources) Premature beats; Translations: [Other premature depolarization] Onset: 07-02-2007 07-02-2007 Chronic Cardiac dysrhythmias (1 source) Palpitations; Translations: [Palpitations] Onset: 11-19-2017 Episodic Coagulation and hemorrhagic disorders (10 sources) Thrombocytopenic disorder; Translations: [Thrombocytopenia, unspecified] Onset: 06-12-2011 06-12-2011 Chronic Deficiency and other anemia (1 source) Pancytopenia; Translations: [Other pancytopenia] Chronic Deficiency and other anemia (1 source) Macrocytic anemia; Translations: [Nutritional anemia, unspecified] Episodic Deficiency and other anemia (1 source) Anemia; Translations: [Anemia, unspecified] Episodic Disorders of lipid metabolism (7 sources) Hyperlipidemia; Translations: [Hyperlipidemia, unspecified] 10-14-2015 Chronic Esophageal disorders (7 sources) Gastroesophageal reflux disease; Translations: [Gastro-esophageal reflux disease without esophagitis] Onset: 07-02-2006 12-31-2006 Chronic Essential hypertension (7 sources) Essential hypertension; Translations: [Essential (primary) hypertension] Onset: 10-17-2005 07-09-2015 Chronic Nutritional deficiencies (9 sources) Vitamin D deficiency; Translations: [Vitamin D deficiency, unspecified] Onset: 03-08-2009 03-11-2009 Chronic Other hematologic conditions (10 sources) Macrocytosis - no anemia; Translations: [Other specified diseases of blood and blood-forming organs] Onset: 05-15-2011 05-15-2011 Chronic Other lower respiratory disease (1 source) Other forms of dyspnea; Translations: [Other forms of dyspnea] Onset: 11-19-2017 Episodic Other nutritional; endocrine; and metabolic disorders (7 sources) Metabolic syndrome X; Translations: [Metabolic syndrome] Onset: 02-04-2007 07-02-2007 Chronic Other upper respiratory disease (7 sources) Chronic rhinitis; Translations: [Chronic rhinitis] Onset: 11-23-2012 11-23-2012 Chronic Residual codes; unclassified (7 sources) Sleep apnea; Translations: [Sleep apnea, unspecified] Onset: 08-09-2006 07-18-2021 Chronic Thyroid disorders (7 sources) Hypothyroidism; Translations: [Hypothyroidism, unspecified] 07-02-2015 Chronic Unclassified (1 source) Unknown / UNK(Unknown) Onset: 05-21-2017 Past or Other Problems Problem Classification Problem Date Documented Da te Episodic/Chronic Abdominal hernia (7 sources) Diaphragmatic hernia; Translations: [Diaphragmatic hernia without obstruction or gangrene] Onset: 05-04-2009 05-04-2009 Episodic Deficiency and other anemia (1 source) Nutritional anemia, unspecified; Translations: [Macrocytic anemia] Onset: 05-26-2022 Episodic Deficiency and other anemia (1 source) Anemia, unspecified; Translations: [Anemia, unspecified type] Onset: 05-26-2022 Episodic Diabetes mellitus without complication (7 sources) Hyperglycemia; Translations: [Hyperglycemia, unspecified] Onset: 03-08-2009 03-11-2009 Episodic Esophageal disorders (7 sources) Esophagitis; Translations: [Esophagitis, unspecified] Onset: 05-04-2009 05-04-2009 Episodic Gastritis and duodenitis (7 sources) Gastritis; Translations: [Gastritis, unspecified, without bleeding] Onset: 03-19-2009 03-19-2009 Episodic Menopausal disorders (7 sources) Postmenopausal state; Translations: [Hormone replacement therapy] Onset: 04-05-2010 08-09-2012 Episodic Other bone disease and musculoskeletal deformities (7 sources) Osteopenia; Translations: [Other specified disorders of bone density and structure, unspecified site] Onset: 06-17-2013 06-17-2013 Episodic Unclassified (1 source) Other forms of dyspnea Onset: 05-21-2017 Results Test Name Value Interpretation Reference Range Facil ity Vital Signs Date Time Vital Sign Value Performing Clinician Tracey mills 11-01-2022 15:47-0400 Body temperature 97.7 [degF] Mohinder Carpenteri DO Work Phone: [facility] 11-01-2022 15:47-0400 Body weight 77.11 kg Mohinder Satagoi DO Work Phone: [facility] 11-01-2022 15:47-0400 Diastolic blood pressure 67 mm[Hg] Mohinder Carpenteri DO Work Phone: [facility] 11-01-2022 15:47-0400 Heart rate 50 /min Mohinder Zacki DO Work Phone: [facility] 11-01-2022 15:47-0400 Systolic blood pressure 114 mm[Hg] Mohinder Satagoi DO Work Phone: [facility] 10-18-2022 16:00-0400 Diastolic blood pressure 71 mm[Hg] Mohinder Zacki DO Work Phone: [facility] 10-18-2022 16:00-0400 Heart rate 70 /min Mohinder Masci DO Work Phone: [facility] 10-18-2022 16:00-0400 Systolic blood pressure 133 mm[Hg] Mohinder Masci DO Work Phone: [facility] 09-25-2022 14:14-0500 Body height 168 cm Omhinder Masci DO Work Phone: [facility] 09-25-2022 14:14-0500 Body temperature 98.01 [degF] Mohinder Masci DO Work Phone: [facility] 09-25-2022 14:14-0500 Body weight 77.56 kg Mohinder Masci DO Work Phone: [facility] 09-25-2022 14:14-0500 Diastolic blood pressure 60 mm[Hg] Mohinder Masci DO Work Phone: [facility] 09-25-2022 14:14-0500 Heart rate 67 /min Mohinder Masci DO Work Phone: [facility] 09-25-2022 14:14-0500 SaO2% (BldA) [Mass fraction] 98 % Mohinder Masci DO Work Phone: [facility] 09-25-2022 14:14-0500 Systolic blood pressure 119 mm[Hg] Mohinder Masci DO Work Phone: [facility] 05-26-2022 13:42-0400 Body height 167.6 cm Mohinder Masci DO Work Phone: [facility] 05-26-2022 13:42-0400 Body temperature 98.6 [degF] Mohinder Masci DO Work Phone: [facility] 05-26-2022 13:42-0400 Body weight 75.75 kg Mohinder Masci DO Work Phone: [facility] 05-26-2022 13:42-0400 Diastolic blood pressure 75 mm[Hg] Mohinder Masci DO Work Phone: [facility] 05-26-2022 13:42-0400 Heart rate 66 /min Mohinder Masci DO Work Phone: [facility] 05-26-2022 13:42-0400 Systolic blood pressure 121 mm[Hg] Mohinder Friedman DO Work Phone: [facility] Encounters Encounter Date Encounter Type Care Provider Facility Start: 11-01-2022 End: 11-01-2022 ambulatory Mohinder Friedman DO Work Phone: Hematology/Oncology Plan of Treatment Date Care Activity Detail Author Start: 05-26-2025 DIABETES SCREEN DIABETES SCREEN [facility] Start: 07-23-2022 ADVANCE DIRECTIVE DISCUSSION ADVANCE DIRECTIVE DISCUSSION [facility] Start: 07-23-2022 DEPRESSION ASSESSMENT DEPRESSION ASS ESSMENT [facility] Start: 05-26-2022 End: 07-26-2022 25-hydroxyvitamin D3 [Mass/volume] in Serum or Plasma [facility] Work Phone: Immunizations Immunization Date Immunization Notes Care Provider Fa ruby 05-05-2016 influenza, high dose seasonal, preservative-free Sherron Young MD Work Phone: [facility] Work Phone: 05-13-2015 influenza, high dose seasonal, preservative-free Sherron Young MD Work Phone: [facility] Work Phone: 01-05-2015 pneumococcal conjuga te vaccine, 13 valent Sherron Young MD Work Phone: [facility] 07-07-2014 tetanus and diphther ia toxoids, adsorbed, preservative free, for adult use (5 Lf of tetanus toxoid and 2 Lf of diphtheria toxoid) Sherron Young MD Work Phone: [facility] 05-20-2014 influenza, seasonal, injectable Sherron Young MD Work Phone: [facility] 04-28-2013 influenza virus vacc ine, unspecified formulation Sherron Young MD Work Phone: [facility] 06-04-2012 influenza virus vacc ine, unspecified formulation Sherron Young MD Work Phone: [facility] 05-08-2011 influenza virus vacc ine, unspecified formulation Sherron Young MD Work Phone: [facility] 05-08-2011 pneumococcal polysaccharide vaccine, 23 valent Sherron Young MD Work Phone: [facility] 05-11-2010 influenza virus vacc ine, unspecified formulation Sherron Young MD Work Phone: [facility] Payers Date Payer Category Payer Medicare [id number] 2021 Unknown MMO MMO MEDICARE SUPPLEMENT [id number] 2021-Present [phone] [address] [place] [address] Indemnity [id number] 2005 Medicare MEDICARE MEDICAR E A AND B [id number] 2005-Present [phone] [address] [address] [place] [address] Medicare [id number] 2005 Medicare [id number] Medicare [id number] Social History Date Type Detail Facility Start: 05-08-2011 Tobacco smoking stat [facility] Never smoked tobacco [facility] Start: 05-08-2011 Tobacco use and exposure Smoke less tobacco non-user [facility] Start: 11-20-2018 End: 09-25-2022 Alcohol intake Current drinker of alcohol (finding) [facility] Start: 06-22-2016 Alcohol Comment very rare [facility] Start: 1940 Sex Assigned At Not on file [facility] Start: 05-16-2022 End: 05-26-2022 Exposure to SARS-CoV-2 (event) Not sure [facility] Start: 09-25-2022 Alcohol Comment once a year [facility] Clinical Notes 06-22-2016 to 11-01-2022 Mohinder Friedman, - 11/01/2022 4:11 PM EDTTelephone Encounter - Becka Bacon Pss - 10/22/2022 9:20 AM EDTTelephone Encounter - Mohinder Friedman DO - 10/20/2022 7:54 PM EDTPatient Instructions Note Date & Type Note Facility 11-01-2022 Note HNO ID: [id number] Author: Mohinder Friedman, DO Service: ? Author Type: Physician Type: Progress Notes Filed: 11/01/2022 4:27 PM Note Text: Hematologic problem(s): 1) Chronic mild thrombocytopenia HPI: The patient is an 82-year-old female with a past medical history significant for and for hyperlipidemia, hypertension, sleep apnea, chronic rhinitis, GERD, gastritis, hypothyroidism and osteopenia who is referred today for evaluation of thrombocytopenia CBC on 04/11/2022 demonstrated total white count of 4200. Her blood cell count was mildly decreased at 3,700,000/mm?. Hemoglobin was normal at 12.6 g/dL. MCV was 103.2 fL. Platelet count 235,000. Differential showed mild increase in monocyte percentage and eosinophil percentage. Was more fatigued. Stiffness and pain in fingers. Chronic b/l hip pain. Has to alternate sides at night when sleeping due to pain. Presents for ongoing hematologic management. Interim history: No complaints today. PAST MEDICAL HISTORY Diagnosis Date Arrhythmia off and on-no tx currently BACK PAIN Dysmetabolic syndrome hyperglycemia Esophageal reflux hiatal hernia Essential hypertension, benign Hormone replacement therapy, postmenopausal Dr Cotton Hyperlipidemia Hypothyroidism LVH (left ventricular hypertrophy) resolved Myelodysplastic syndrome (HCC) macrocytosis w/o anemia, leukopenia, thrompocytopenia Obstructive sleep apnea Osteopenia Snoring Unspecified sleep apnea on Bipap Vitamin D deficiency PAST SURGICAL HISTORY Procedure Laterality Date APPENDECTOMY COLONOSCOPY FLX DX W/COLLJ SPEC WHEN PFRMD 12/20/2005 diverticulosis, repeat 2016 COLONOSCOPY FLX DX W/COLLJ SPEC WHEN PFRMD 06/22/16 Colonoscopy EGD TRANSORAL BIOPSY SINGLE/MULTIPLE 05/04/09 ESOPHAGOGASTRODUODENOSCOPY TRANSORAL DIAGNOSTIC 03/01/15 EGD LIG/TRNSXJ FLP TUBE ABDL/VAG APPR UNI/BI 1970 Tubal ligation PAST SURGICAL HISTORY OF 1994 anyurism left hand /vein patching PAST SURGICAL HISTORY OF 10/22/2015 left foot surgery TONSILLECTOMY AND ADENOIDECTOMY XCAPSL CTRC RMVL INSJ IO LENS PROSTH W/O ECP 06/16/14 AND 06/23/14 Cataract Extraction with PC IOL Dr Granados [facility] ROS: Constitutional: Denies episodes of fever and night sweats. Normal appetite. Neuro: Denies ALVARADO, vertigo, dizziness and imbalance. Denies symptoms of neuropathy. HEENT: No recent change in voice, vision or hearing. Resp: Denies cough, wheeze and hemoptysis. Denies shortness of breath at rest. Dyspnea with grades. CVS: Denies exertional chest pain, PND, orthopnea and LE edema. GI: Denies dysgeusia. Denies symptoms of stomatitis. Denies dysphagia and odynophagia. Denies reflux, n/v, change in bowel habits and abdominal pain. : Denies dysuria or gross hematuria. No symptoms of bladder outlet obstruction. Endo: Denies hot flashes. Denies polyuria and polydipsia. Denies heat and cold intolerance. Musculoskeletal: See above. Derm: Denies rash. Denies jaundice and diffuse pruritis. Heme: Denies unusual bleeding and unexplained bruising. Psych: Normal mood. PHYSICAL EXAM: Vitals: Blood pressure 114/67, pulse (!) 50, temperature 36.5 ?C (97.7 ?F), weight 77.1 kg (170 lb), last menstrual period 01/04/1994. Well-appearing and in no acute distress. EYES: Sclerae are anicteric bilaterally. ENT: Oral mucosa is unremarkable. There is no sign of thrush, mucositis or oral mucosal bleeding. LYMPHATIC: There is no palpable cervical, supraclavicular, axillary or inguinal adenopathy. RESPIRATORY: Inspiratory breath sounds are of normal intensity in all robins. No rales, wheezes or rhonchi. CARDIOVASCULAR: Rhythm is regular. Many fine reticular varicosities of the lower extremities. ABDOMEN: The abdomen is nondistended. No organomegaly. No tenderness. Extremities: No swelling or edema. SKIN: No jaundice or rash. No petechiae. NEUROLOGIC: car retarder operator II-XII are grossly intact. No focal motor weakness. LABS: Component Latest Ref Rng AND Units 08/09/2012 05/13/2013 11/07/2013 06/29/2014 07/09/2015 07/09/2015 10/27/2016 05/26/2022 10/18/2022 9:38 AM 9:38 AM WBC 3.70 - 11.00 k/uL 3.41 (L) 3.70 3.29 (L) 3.66 (L) 3.21 (L) 3.32 (L) 4.94 3.57 (L) 4.17 RBC 3.90 - 5.20 m/uL 4.01 3.94 3.82 (L) 3.79 (L) 3.94 3.85 (L) 4.14 3.67 (L) 3.86 (L) Hemoglobin 11.5 - 15.5 g/dL 13.1 12.7 12.5 12.3 12.8 12.5 13.5 12.3 12.9 Hematocrit 36.0 - 46.0 % 40.1 40.1 39.1 38.3 39.1 39.0 42.1 37.8 39.5 MCV 80.0 - 100.0 fL 100.0 101.8 (H) 102.4 (H) 101.1 (H) 99.2 101.3 (H) 101.7 (H) 103.0 (H) 102.3 (H) MCH 26.0 - 34.0 pg 32.7 32.2 32.7 32.5 32.5 32.5 32.6 33.5 33.4 MCHC 30.5 - 36.0 g/dL 32.7 31.7 32.0 32.1 32.7 32.1 32.1 32.5 32.7 RDW-CV 11.5 - 15.0 % 11.9 12.2 12.0 12.1 12.3 12.3 11.8 11.5 11.7 Platelet Count 150 - 400 k/uL 135 (L) 133 (L) 139 (L) 143 (L) 154 145 (L) 151 132 (L) 132 (L) MPV 9.0 - 12.7 fL 11.9 11.7 11.7 11.6 11.3 11.6 11.4 10.9 11.1 Neut% % 53.9 40.8 42.3 45.1 52.0 51.3 63.1 54 (more content not included)... [facility] 11-01-2022 History of Presen t illness Narrative Hematologic problem(s): 1) Chronic mild thrombocytopenia HPI: The patient is an 82-year-old female with a past medical history significant for and for hyperlipidemia, hypertension, sleep apnea, chronic rhinitis, GERD, gastritis, hypothyroidism and osteopenia who is referred today for evaluation of thrombocytopenia CBC on 04/11/2022 demonstrated total white count of 4200. Her blood cell count was mildly decreased at 3,700,000/mm . Hemoglobin was normal at 12.6 g/dL. MCV was 103.2 fL. Platelet count 235,000. Differential showed mild increase in monocyte percentage and eosinophil percentage. Was more fatigued. Stiffness and pain in fingers. Chronic b/l hip pain. Has to alternate sides at night when sleeping due to pain. Presents for ongoing hematologic management. Interim history: No complaints today. PAST MEDICAL HISTORY Diagnosis Date Arrhythmia off and on-no tx currently BACK PAIN Dysmetabolic syndrome hyperglycemia Esophageal reflux hiatal hernia Essential hypertension, benign Hormone replacement therapy, postmenopausal Dr Cotton Hyperlipidemia Hypothyroidism LVH (left ventricular hypertrophy) resolved Myelodysplastic syndrome (HCC) macrocytosis w/o anemia, leukopenia, thrompocytopenia Obstructive sleep apnea Osteopenia Snoring Unspecified sleep apnea on Bipap Vitamin D deficiency PAST SURGICAL HISTORY Procedure Laterality Date APPENDECTOMY COLONOSCOPY FLX DX W/COLLJ SPEC WHEN PFRMD 12/20/2005 diverticulosis, repeat 2016 COLONOSCOPY FLX DX W/COLLJ SPEC WHEN PFRMD 06/22/16 Colonoscopy EGD TRANSORAL BIOPSY SINGLE/MULTIPLE 05/04/09 ESOPHAGOGASTRODUODENOSCOPY TRANSORAL DIAGNOSTIC 03/01/15 EGD LIG/TRNSXJ FLP TUBE ABDL/VAG APPR UNI/BI 1969 Tubal ligation PAST SURGICAL HISTORY OF 1994 anyurism left hand /vein patching PAST SURGICAL HISTORY OF 10/22/2015 left foot surgery TONSILLECTOMY & ADENOIDECTOMY <AGE 12 XCAPSL CTRC RMVL INSJ IO LENS PROSTH W/O ECP 06/16/14 & 06/23/14 Cataract Extraction with PC IOL Dr Granados [facility] ROS: Constitutional: Denies episodes of fever and night sweats. Normal appetite. Neuro: Denies ALVARADO, vertigo, dizziness and imbalance. Denies symptoms of neuropathy. HEENT: No recent change in voice, vision or hearing. Resp: Denies cough, wheeze and hemoptysis. Denies shortness of breath at rest. Dyspnea with grades. CVS: Denies exertional chest pain, PND, orthopnea and LE edema. GI: Denies dysgeusia. Denies symptoms of stomatitis. Denies dysphagia and odynophagia. Denies reflux, n/v, change in bowel habits and abdominal pain. : Denies dysuria or gross hematuria. No symptoms of bladder outlet obstruction. Endo: Denies hot flashes. Denies polyuria and polydipsia. Denies heat and cold intolerance. Musculoskeletal: See above. Derm: Denies rash. Denies jaundice and diffuse pruritis. Heme: Denies unusual bleeding and unexplained bruising. Psych: Normal mood. PHYSICAL EXAM: Vitals: Blood pressure 114/67, pulse (!) 50, temperature 36.5 C (97.7 F), weight 77.1 kg (170 lb), last menstrual period 01/04/1994. Well-appearing and in no acute distress. EYES: Sclerae are anicteric bilaterally. ENT: Oral mucosa is unremarkable. There is no sign of thrush, mucositis or oral mucosal bleeding. LYMPHATIC: There is no palpable cervical, supraclavicular, axillary or inguinal adenopathy. RESPIRATORY: Inspiratory breath sounds are of normal intensity in all robins. No rales, wheezes or rhonchi. CARDIOVASCULAR: Rhythm is regular. Many fine reticular varicosities of the lower extremities. ABDOMEN: The abdomen is nondistended. No organomegaly. No tenderness. Extremities: No swelling or edema. SKIN: No jaundice or rash. No petechiae. NEUROLOGIC: car retarder operator II-XII are grossly intact. No focal motor weakness. LABS: Component Latest Ref Rng & Units 08/09/2012 05/13/2013 11/07/2013 06/29/2014 07/09/2015 07/09/2015 10/27/2016 05/26/2022 10/18/2022 9:38 AM 9:38 AM WBC 3.70 - 11.00 k/uL 3.41 (L) 3.70 3.29 (L) 3.66 (L) 3.21 (L) 3.32 (L) 4.94 3.57 (L) 4.17 RBC 3.90 - 5.20 m/uL 4.01 3.94 3.82 (L) 3.79 (L) 3.94 3.85 (L) 4.14 3.67 (L) 3.86 (L) Hemoglobin 11.5 - 15.5 g/dL 13.1 12.7 12.5 12.3 12.8 12.5 13.5 12.3 12.9 Hematocrit 36.0 - 46.0 % 40.1 40.1 39.1 38.3 39.1 39.0 42.1 37.8 39.5 MCV 80.0 - 100.0 fL 100.0 101.8 (H) 102.4 (H) 101.1 (H) 99.2 101.3 (H) 101.7 (H) 103.0 (H) 102.3 (H) MCH 26.0 - 34.0 pg 32.7 32.2 32.7 32.5 32.5 32.5 32.6 33.5 33.4 MCHC 30.5 - 36.0 g/dL 32.7 31.7 32.0 32.1 32.7 32.1 32.1 32.5 32.7 RDW-CV 11.5 - 15.0 % 11.9 12.2 12.0 12.1 12.3 12.3 11.8 11.5 11.7 Platelet Count 150 - 400 k/uL 135 (L) 133 (L) 139 (L) 143 (L) 154 145 (L) 151 132 (L) 132 (L) MPV 9.0 - 12.7 fL 11.9 11.7 11.7 11.6 11.3 11.6 11.4 10.9 11.1 Neut% % 53.9 40.8 42.3 45.1 52.0 51.3 63.1 54.0 Abs Neut (ANC) 1.45 - 7.50 k/uL 1.84 1.51 1.39 (L) 1.65 1.67 1.70 2.25 2.25 Lymph% % 29.3 41.9 38.6 33.9 32.7 31.6 23.2 30.2 Abs Lymph 1.00 - 4.00 k/uL 1.00 1.55 1.27 1.24 1.05 1.05 0.83 (L) 1.26 Wagoner% % 10.9 11.4 10.9 13.1 9.7 12.0 10.6 11.8 Abs Wagoner <0.87 k/uL 0.37 0.42 0.36 0.48 0.31 0.40 0.38 0.49 Eosin% % 5.3 5.4 7.6 7.1 5.0 4.5 2.2 3.1 Abs Eosin <0.46 k/uL 0.18 0.20 0.25 0.26 0.16 0.15 0.08 0.13 Baso% % 0.6 0.5 0.6 0.8 0.6 0.6 0.6 0.7 Abs Baso <0.11 k/uL 0.02 0.02 0.02 0.03 0.02 0.02 <0.03 0.03 Immature Gran % % 0.3 0.2 IMMATURE GRANS (ABS) <0.10 k/uL <0.03 <0.03 NRBC /100 WBC 0.0 0.0 Absolute nRBC <0.01 k/uL <0.01 <0.01 DTYPE Auto Auto Diff Type Auto Diff Auto Diff Auto Diff Auto Diff Auto Diff Protein, Total 6.3 - 8.0 g/dL 6.5 Albumin 3.9 - 4.9 g/dL 4.3 Calcium 8.5 - 10.2 mg/dL 9.5 Bilirubin, Total 0.2 - 1.3 mg/dL 0.4 Alkaline Phosphatase 34 - 123 U/L 66 AST 13 - 35 U/L 19 ALT 7 - 38 U/L 16 Glucose 74 - 99 mg/dL 109 (H) BUN 7 - 21 mg/dL 20 Creatinine 0.58 - 0.96 mg/dL 0.82 Sodium 136 - 144 mmol/L 139 Potassium 3.7 - 5.1 mmol/L 4.0 Chloride 97 - 105 mmol/L 104 CO2 22 - 30 mmol/L 28 Anion Gap 9 - 18 mmol/L 7 (L) eGFR >=60 mL/min/1.73m 72 Iron 41 - 186 ug/dL 93 TIBC 232 - 386 ug/dL 321 Transferrin Saturation 15.0 - 57.0 % 29.0 Vitamin B12 232 - 1,245 pg/mL 488 Copper 80 - 155 ug/dL 74 (L) Zinc 60 - 120 ug/dL 52 (L) Selenium 58.0 - 234.0 ug/L 153.6 Vitamin B1 (TDP), Whole Blood 84.3 - 213.3 nmol/L 144.9 Vitamin D 25 Hydroxy 31.0 - 80.0 ng/mL 33.4 Ferritin 14.7 - 205.1 ng/mL 43.9 TSH 0.270 - 4.200 mIU/L 0.764 RBC Folate >=366 ng/mL 644 ASSESSMENT/PLAN: (D53.9) Macrocytic anemia (primary encounter diagnosis) (D64.9) Anemia, unspecified type Assessment: -The patient is an 82-year-old female who was originally evaluated by my colleague 10 years ago for mild pancytopenia. There had not been any substantial change in her counts since that time. Her PCP had performed a work-up including B12, folate, iron testing. I suggested a stepwise further work-up including other nutritional deficiencies. -She had mildly low zinc and copper levels and she has been taking a supplement for replacement. -Reviewed bone marrow biopsy in results in detail. Morphologically normal marrow with normocellular (20-30%) trilineage hematopoiesis. Flow cytometry negative and cytogenetics normal. Plan: -Can return to PCP for periodic monitoring of CBC. -Can see back to re-evaluate if significant change in counts. Portions of this documentation were copied and pasted from previous office visit notes in order to provide a cohesive continuity of the history. The note has been reviewed and edited and updated as necessary. I spent a total of 20 minutes on the date of the service which included preparing to see the patient, [id number] patient care, completing clinical documentation, and communicating results to the patient/family/caregiver. Mohinder Friedman DO documented in this encounter [facility] 10-22-2022 Miscellaneous Notes I called and spoke to Mary and let her know the below information and she stated understanding. Becka Bacon Pss Good news. Can let her know the preliminary analysis of her bone marrow shows no evidence of leukemia or other bone marrow disorder. Some of the molecular tests are still pending so we will update her when those are available but so far I am very encouraged that there is nothing seriously wrong. Mohinder Friedman DO documented in this encounter [facility] 10-18-2022 Nurse Note 1:40p- Pt discharged to home with after BMBX with dry sterile dressing in place. No drainage noted. Post-procedure care reviewed with patient and . Pt to call with any complaints of redness, swelling, increased or unresolved pain, bleeding, chills, bruising, and/or fever. Pt verbalized understanding. Katia Calzada RN BMBXUNIVERSAL PROTOCOL / SAFETY CHECKLIST Procedure to be Performed: BMBX Sign In: A Moment of CARE was completed. Personnel directly involved with the procedure wore the appropriate PPE (Personal Protective Equipment). Patient/Surrogate Stated/Verified: PATIENT VERIFIED(optional for EMERGENT procedures): Patient name, Date of , Relevant allergies, and The intended procedure Time Out Communication: Intended patient and procedure match the source documents. Consent documented and matches the intended procedure. Sign Out: Katia Calzada RN documented in this encounter [facility] 10-18-2022 Note HNO ID: [id number] Author: Mohinder Friedman, DO Service: ? Author Type: Physician Type: Procedures Filed: 10/18/2022 4:08 PM Note Text: PROCEDURE: Bone marrow aspiration and biopsy. PRE-PROCEDURE DIAGNOSIS: Macrocytosis and thrombocytopenia. POST-PROCEDURE DIAGNOSIS: Same. INDICATIONS FOR PROCEDURE: Rule out MDS. PROCEDURE FINDINGS: None. PROCEDURE: After an audible time-out was performed, the patient was positioned in the left lateral decubitus position. The skin over the right PSIS was prepped with iodine solution. The skin was infiltrated with 1% lidocaine and anesthesia was carried down to the periosteum of the bone. The marrow space was entered with a 4 in cfgAdvance biopsy drill set. Approximately 0.5 mL was aspirated. The aspirate had no spicules. Then 15 mL were withdrawn for flow cytometry, cytogenetics and NGS if indicated. The needle was then advanced and approximately 2-3 mm core was obtained without difficulty. The skin over the right PSIS was re-prepped with iodine solution. The skin was infiltrated with 1% lidocaine and anesthesia was carried down to the periosteum of the bone. The marrow space was entered with a 4 in Oncontrol biopsy drill set. Approximately 0.5 mL was aspirated. Spicules were observed on the slides. Then 15 mL were withdrawn for flow cytometry, cytogenetics and NGS if indicated. The needle was then advanced and approximately 1 cm core was obtained without difficulty. Light pressure was applied to achieve hemostasis. A dressing was applied. ESTIMATED BLOOD LOSS: None. DRAINS: Not applicable. SPECIMENS: Bone marrow aspirate and core biopsy sample. COMPLICATIONS: None. START TIME: 1:10 pm. The entire procedure was performed by Lyly Kumar CNP. I testify I observed the entire procedure. Mohinder Friedman DO [facility] 10-18-2022 Procedure note PROCEDURE: Bone marrow aspiration and biopsy. PRE-PROCEDURE DIAGNOSIS: Macrocytosis and thrombocytopenia. POST-PROCEDURE DIAGNOSIS: Same. INDICATIONS FOR PROCEDURE: Rule out MDS. PROCEDURE FINDINGS: None. PROCEDURE: After an audible time-out was performed, the patient was positioned in the left lateral decubitus position. The skin over the right PSIS was prepped with iodine solution. The skin was infiltrated with 1% lidocaine and anesthesia was carried down to the periosteum of the bone. The marrow space was entered with a 4 in Oncontrol biopsy drill set. Approximately 0.5 mL was aspirated. The aspirate had no spicules. Then 15 mL were withdrawn for flow cytometry, cytogenetics and NGS if indicated. The needle was then advanced and approximately 2-3 mm core was obtained without difficulty. The skin over the right PSIS was re-prepped with iodine solution. The skin was infiltrated with 1% lidocaine and anesthesia was carried down to the periosteum of the bone. The marrow space was entered with a 4 in Oncontrol biopsy drill set. Approximately 0.5 mL was aspirated. Spicules were observed on the slides. Then 15 mL were withdrawn for flow cytometry, cytogenetics and NGS if indicated. The needle was then advanced and approximately 1 cm core was obtained without difficulty. Light pressure was applied to achieve hemostasis. A dressing was applied. ESTIMATED BLOOD LOSS: None. DRAINS: Not applicable. SPECIMENS: Bone marrow aspirate and core biopsy sample. COMPLICATIONS: None. START TIME: 1:10 pm. The entire procedure was performed by Lyly Kumar CNP. I testify I observed the entire procedure. Mohinder Friedman DO documented in this encounter [facility] 09-25-2022 Note HNO ID: [id number] Author: Mohinder Friedman DO Service: ? Author Type: Physician Type: Progress Notes Filed: 09/25/2022 3:13 PM Note Text: Hematologic problem(s): 1) Chronic mild thrombocytopenia HPI: The patient is an 82-year-old female with a past medical history significant for and for hyperlipidemia, hypertension, sleep apnea, chronic rhinitis, GERD, gastritis, hypothyroidism and osteopenia who is referred today for evaluation of thrombocytopenia CBC on 04/11/2022 demonstrated total white count of 4200. Her blood cell count was mildly decreased at 3,700,000/mm?. Hemoglobin was normal at 12.6 g/dL. MCV was 103.2 fL. Platelet count 235,000. Differential showed mild increase in monocyte percentage and eosinophil percentage. Was more fatigued. Stiffness and pain in fingers. Chronic b/l hip pain. Has to alternate sides at night when sleeping due to pain. Presents for ongoing hematologic management. Interim history: Started on Centrum Silver for mild zinc and copper deficiency. Had a CBC done at [facility] 09/11/2022. Total white count was 3500. RBC count 3.81 million. Hemoglobin 12.6 g/dL. MCV 105. Platelet count 124,000 ANC was 1600. Feels fatigued. Some nights doesn't sleep well. PAST MEDICAL HISTORY Diagnosis Date Arrhythmia off and on-no tx currently BACK PAIN Dysmetabolic syndrome hyperglycemia Esophageal reflux hiatal hernia Essential hypertension, benign Hormone replacement therapy, postmenopausal Dr Cotton Hyperlipidemia Hypothyroidism LVH (left ventricular hypertrophy) resolved Myelodysplastic syndrome (HCC) macrocytosis w/o anemia, leukopenia, thrompocytopenia Obstructive sleep apnea Osteopenia Snoring Unspecified sleep apnea on Bipap Vitamin D deficiency PAST SURGICAL HISTORY Procedure Laterality Date APPENDECTOMY COLONOSCOPY FLX DX W/COLLJ SPEC WHEN PFRMD 12/20/2005 diverticulosis, repeat 2016 COLONOSCOPY FLX DX W/COLLJ SPEC WHEN PFRMD 06/22/16 Colonoscopy EGD TRANSORAL BIOPSY SINGLE/MULTIPLE 05/04/09 ESOPHAGOGASTRODUODENOSCOPY TRANSORAL DIAGNOSTIC 03/01/15 EGD LIG/TRNSXJ FLP TUBE ABDL/VAG APPR UNI/BI 1969 Tubal ligation PAST SURGICAL HISTORY OF 1994 anyurism left hand /vein patching PAST SURGICAL HISTORY OF 10/22/2015 left foot surgery TONSILLECTOMY AND ADENOIDECTOMY XCAPSL CTRC RMVL INSJ IO LENS PROSTH W/O ECP 06/16/14 AND 06/23/14 Cataract Extraction with PC IOL Dr Granados [facility] ROS: Constitutional: Denies episodes of fever and night sweats. Normal appetite. Neuro: Denies ALVARADO, vertigo, dizziness and imbalance. Denies symptoms of neuropathy. HEENT: No recent change in voice, vision or hearing. Resp: Denies cough, wheeze and hemoptysis. Denies shortness of breath at rest. Dyspnea wit grades. CVS: Denies exertional chest pain, PND, orthopnea and LE edema. GI: Denies dysgeusia. Denies symptoms of stomatitis. Denies dysphagia and odynophagia. Denies reflux, n/v, change in bowel habits and abdominal pain. : Denies dysuria or gross hematuria. No symptoms of bladder outlet obstruction. Endo: Denies hot flashes. Denies polyuria and polydipsia. Denies heat and cold intolerance. Musculoskeletal: See above. Derm: Denies rash. Denies jaundice and diffuse pruritis. Heme: Denies unusual bleeding and unexplained bruising. Psych: Normal mood. PHYSICAL EXAM: Vitals: Blood pressure 119/60, pulse 67, temperature 36.7 ?C (98 ?F), height 168 cm (5' 6.14 ), weight 77.6 kg (171 lb), last menstrual period 01/04/1994, SpO2 98 %. Well-appearing and in no acute distress. EYES: Sclerae are anicteric bilaterally. ENT: Oral mucosa is unremarkable. There is no sign of thrush, mucositis or oral mucosal bleeding. LYMPHATIC: There is no palpable cervical, supraclavicular, axillary or inguinal adenopathy. RESPIRATORY: Inspiratory breath sounds are of normal intensity in all robins. No rales, wheezes or rhonchi. CARDIOVASCULAR: Rhythm is regular. Many fine reticular varicosities of the lower extremities. ABDOMEN: The abdomen is nondistended. No organomegaly. No tenderness. Extremities: No swelling or edema. SKIN: No jaundice or rash. No petechiae. NEUROLOGIC: car retarder operator II-XII are grossly intact. No focal motor weakness. LABS: Component Latest Ref Rng AND Units 08/09/2012 05/13/2013 07/09/2015 05/26/2022 WBC 3.70 - 11.00 k/uL 3.41 (L) 3.70 3.21 (L) 3.57 (L) RBC 3.90 - 5.20 m/uL 4.01 3.94 3.94 3.67 (L) Hemoglobin 11.5 - 15.5 g/dL 13.1 12.7 12.8 12.3 Hematocrit 36.0 - 46.0 % 40.1 40.1 39.1 37.8 MCV 80.0 - 100.0 fL 100.0 101.8 (H) 99.2 103.0 (H) MCH 26.0 - 34.0 pg 32.7 32.2 32.5 33.5 MCHC 30.5 - 36.0 g/dL 32.7 31.7 32.7 32.5 RDW-CV 11.5 - 15.0 % 11.9 12.2 12.3 11.5 Platelet Count 150 - 400 k/uL 135 (L) 133 (L) 154 132 (L) MPV 9.0 - 12.7 fL 11.9 11.7 11.3 10.9 Neut% % 53.9 40.8 52.0 63.1 Abs Neut (ANC) 1.45 - 7.50 k/uL 1.84 1.51 1.67 2.25 Lymph% % 29.3 41.9 32.7 23.2 Abs Lymph 1.00 - (more content not included)... [facility] 09-25-2022 Instructions Mohinder Friedman DO - 09/25/2022 3:07 PM EST Hold fish oil supplement beginning 1 week prior to biopsy. No aspirin or NSAIDs for a week prior to biopsy. Tylenol is okay to take up to the time of the biopsy. documented in this encounter [facility] 09-25-2022 History of Presen t illness Narrative Hematologic problem(s): 1) Chronic mild thrombocytopenia HPI: The patient is an 82-year-old female with a past medical history significant for and for hyperlipidemia, hypertension, sleep apnea, chronic rhinitis, GERD, gastritis, hypothyroidism and osteopenia who is referred today for evaluation of thrombocytopenia CBC on 04/11/2022 demonstrated total white count of 4200. Her blood cell count was mildly decreased at 3,700,000/mm . Hemoglobin was normal at 12.6 g/dL. MCV was 103.2 fL. Platelet count 235,000. Differential showed mild increase in monocyte percentage and eosinophil percentage. Was more fatigued. Stiffness and pain in fingers. Chronic b/l hip pain. Has to alternate sides at night when sleeping due to pain. Presents for ongoing hematologic management. Interim history: Started on Centrum Silver for mild zinc and copper deficiency. Had a CBC done at [facility] 09/11/2022. Total white count was 3500. RBC count 3.81 million. Hemoglobin 12.6 g/dL. MCV 105. Platelet count 124,000 ANC was 1600. Feels fatigued. Some nights doesn't sleep well. PAST MEDICAL HISTORY Diagnosis Date Arrhythmia off and on-no tx currently BACK PAIN Dysmetabolic syndrome hyperglycemia Esophageal reflux hiatal hernia Essential hypertension, benign Hormone replacement therapy, postmenopausal Dr Cotton Hyperlipidemia Hypothyroidism LVH (left ventricular hypertrophy) resolved Myelodysplastic syndrome (HCC) macrocytosis w/o anemia, leukopenia, thrompocytopenia Obstructive sleep apnea Osteopenia Snoring Unspecified sleep apnea on Bipap Vitamin D deficiency PAST SURGICAL HISTORY Procedure Laterality Date APPENDECTOMY COLONOSCOPY FLX DX W/COLLJ SPEC WHEN PFRMD 12/20/2005 diverticulosis, repeat 2016 COLONOSCOPY FLX DX W/COLLJ SPEC WHEN PFRMD 06/22/16 Colonoscopy EGD TRANSORAL BIOPSY SINGLE/MULTIPLE 05/04/09 ESOPHAGOGASTRODUODENOSCOPY TRANSORAL DIAGNOSTIC 03/01/15 EGD LIG/TRNSXJ FLP TUBE ABDL/VAG APPR UNI/BI 1969 Tubal ligation PAST SURGICAL HISTORY OF 1994 anyurism left hand /vein patching PAST SURGICAL HISTORY OF 10/22/2015 left foot surgery TONSILLECTOMY & ADENOIDECTOMY <AGE 12 XCAPSL CTRC RMVL INSJ IO LENS PROSTH W/O ECP 06/16/14 & 06/23/14 Cataract Extraction with PC IOL Dr Granados [facility] ROS: Constitutional: Denies episodes of fever and night sweats. Normal appetite. Neuro: Denies ALVARADO, vertigo, dizziness and imbalance. Denies symptoms of neuropathy. HEENT: No recent change in voice, vision or hearing. Resp: Denies cough, wheeze and hemoptysis. Denies shortness of breath at rest. Dyspnea wit grades. CVS: Denies exertional chest pain, PND, orthopnea and LE edema. GI: Denies dysgeusia. Denies symptoms of stomatitis. Denies dysphagia and odynophagia. Denies reflux, n/v, change in bowel habits and abdominal pain. : Denies dysuria or gross hematuria. No symptoms of bladder outlet obstruction. Endo: Denies hot flashes. Denies polyuria and polydipsia. Denies heat and cold intolerance. Musculoskeletal: See above. Derm: Denies rash. Denies jaundice and diffuse pruritis. Heme: Denies unusual bleeding and unexplained bruising. Psych: Normal mood. PHYSICAL EXAM: Vitals: Blood pressure 119/60, pulse 67, temperature 36.7 C (98 F), height 168 cm (5' 6.14 ), weight 77.6 kg (171 lb), last menstrual period 01/04/1994, SpO2 98 %. Well-appearing and in no acute distress. EYES: Sclerae are anicteric bilaterally. ENT: Oral mucosa is unremarkable. There is no sign of thrush, mucositis or oral mucosal bleeding. LYMPHATIC: There is no palpable cervical, supraclavicular, axillary or inguinal adenopathy. RESPIRATORY: Inspiratory breath sounds are of normal intensity in all robins. No rales, wheezes or rhonchi. CARDIOVASCULAR: Rhythm is regular. Many fine reticular varicosities of the lower extremities. ABDOMEN: The abdomen is nondistended. No organomegaly. No tenderness. Extremities: No swelling or edema. SKIN: No jaundice or rash. No petechiae. NEUROLOGIC: car retarder operator II-XII are grossly intact. No focal motor weakness. LABS: Component Latest Ref Rng & Units 08/09/2012 05/13/2013 07/09/2015 05/26/2022 WBC 3.70 - 11.00 k/uL 3.41 (L) 3.70 3.21 (L) 3.57 (L) RBC 3.90 - 5.20 m/uL 4.01 3.94 3.94 3.67 (L) Hemoglobin 11.5 - 15.5 g/dL 13.1 12.7 12.8 12.3 Hematocrit 36.0 - 46.0 % 40.1 40.1 39.1 37.8 MCV 80.0 - 100.0 fL 100.0 101.8 (H) 99.2 103.0 (H) MCH 26.0 - 34.0 pg 32.7 32.2 32.5 33.5 MCHC 30.5 - 36.0 g/dL 32.7 31.7 32.7 32.5 RDW-CV 11.5 - 15.0 % 11.9 12.2 12.3 11.5 Platelet Count 150 - 400 k/uL 135 (L) 133 (L) 154 132 (L) MPV 9.0 - 12.7 fL 11.9 11.7 11.3 10.9 Neut% % 53.9 40.8 52.0 63.1 Abs Neut (ANC) 1.45 - 7.50 k/uL 1.84 1.51 1.67 2.25 Lymph% % 29.3 41.9 32.7 23.2 Abs Lymph 1.00 - 4.00 k/uL 1.00 1.55 1.05 0.83 (L) Wagoner% % 10.9 11.4 9.7 10.6 Abs Wagoner <0.87 k/uL 0.37 0.42 0.31 0.38 Eosin% % 5.3 5.4 5.0 2.2 Abs Eosin <0.46 k/uL 0.18 0.20 0.16 0.08 Baso% % 0.6 0.5 0.6 0.6 Abs Baso <0.11 k/uL 0.02 0.02 0.02 <0.03 Immature Gran % % 0.3 IMMATURE GRANS (ABS) <0.10 k/uL <0.03 NRBC /100 WBC 0.0 Absolute nRBC <0.01 k/uL <0.01 DTYPE Auto Diff Type Auto Diff Auto Diff Protein, Total 6.3 - 8.0 g/dL 6.5 Albumin 3.9 - 4.9 g/dL 4.3 Calcium 8.5 - 10.2 mg/dL 9.5 Bilirubin, Total 0.2 - 1.3 mg/dL 0.4 Alkaline Phosphatase 34 - 123 U/L 66 AST 13 - 35 U/L 19 ALT 7 - 38 U/L 16 Glucose 74 - 99 mg/dL 109 (H) BUN 7 - 21 mg/dL 20 Creatinine 0.58 - 0.96 mg/dL 0.82 Sodium 136 - 144 mmol/L 139 Potassium 3.7 - 5.1 mmol/L 4.0 Chloride 97 - 105 mmol/L 104 CO2 22 - 30 mmol/L 28 Anion Gap 9 - 18 mmol/L 7 (L) eGFR >=60 mL/min/1.73m 72 Iron 41 - 186 ug/dL 93 TIBC 232 - 386 ug/dL 321 Transferrin Saturation 15.0 - 57.0 % 29.0 Vitamin B12 232 - 1,245 pg/mL 488 Copper 80 - 155 ug/dL 74 (L) Zinc 60 - 120 ug/dL 52 (L) Selenium 58.0 - 234.0 ug/L 153.6 Vitamin B1 (TDP), Whole Blood 84.3 - 213.3 nmol/L 144.9 Vitamin D 25 Hydroxy 31.0 - 80.0 ng/mL 33.4 Ferritin 14.7 - 205.1 ng/mL 43.9 TSH 0.270 - 4.200 mIU/L 0.764 RBC Folate >=366 ng/mL 644 ASSESSMENT/PLAN: (D53.9) Macrocytic anemia (primary encounter diagnosis) (D64.9) Anemia, unspecified type Assessment: -The patient is an 82-year-old female who was originally evaluated by my colleague 10 years ago for mild pancytopenia. There had not been any substantial change in her counts since that time. Her PCP had performed a work-up including B12, folate, iron testing. I suggested a stepwise further work-up including other nutritional deficiencies. -She had mildly low zinc and copper levels and she has been taking a supplement for replacement. -No substantial change in her counts. She is also had mild intermittent neutropenia in the past. Discussed with her the importance of diagnosis so that if there is a deterioration in her counts over time we would know how to manage. I recommended bone marrow biopsy and after discussing the risks and benefits, she agreed. Plan: -Consented for bone marrow biopsy after discussing the risks, benefits and alternatives. -Hold fish oil supplement about a week prior to biopsy. -Instructions entered into AVS and provided to her. -Office visit about 2 weeks after biopsy. Portions of this documentation were copied and pasted from previous office visit notes in order to provide a cohesive continuity of the history. The note has been reviewed and edited and updated as necessary. I spent a total of 20 minutes on the date of the service which included preparing to see the patient, [id number] patient care, completing clinical documentation, obtaining and/or reviewing separately obtained history, performing a medically appropriate examination, counseling and educating the patient/family/caregiver, and communicating results to the patient/family/caregiver. Mohinder Friedman DO documented in this encounter [facility] 06-05-2022 Miscellaneous Notes Spoke with pt, given results. Also sent information to pt. Via mail. Amie Encarnacion LPN Left message on VM to call office to review message from Dr Friedman regarding labs and med OTC changes. Nicole Rashid LPN Can let her know that both her zinc and copper levels were a little bit low. I advise that she discontinue her zinc supplement if taking it. Also discontinue coenzyme Q with vitamin E. She can continue B complex but should take it on a daily basis. Recommend taking PreserVision brand AREDS 2 + multivitamin capsules, one capsule daily. She can find this at [facility]. Recheck CBC in September as scheduled. Mohinder Friedman DO documented in this encounter [facility] 05-26-2022 Note HNO ID: [id number] Author: Mohinder Friedman DO Service: ? Author Type: Physician Type: Progress Notes Filed: 05/26/2022 2:28 PM Note Text: Patient referred by Dr. Rangel for thrombocytopenia. The impression and plan will be communicated by way of the shared electronic record or faxed under separate cover letter. HPI: The patient is an 81-year-old female with a past medical history significant for and for hyperlipidemia, hypertension, sleep apnea, chronic rhinitis, GERD, gastritis, hypothyroidism and osteopenia who is referred today for evaluation of thrombocytopenia Her most recent CBC on 04/11/2022 demonstrated total white count of 4200. Her blood cell count was mildly decreased at 3,700,000/mm?. Hemoglobin was normal at 12.6 g/dL. MCV was 103.2 fL. Platelet count 235,000. Differential showed mild increase in monocyte percentage and eosinophil percentage. More fatigued. Stiffness and pain in fingers. Chronic b/l hip pain. Has to alternate sides at night when sleeping due to pain. PAST MEDICAL HISTORY Diagnosis Date Arrhythmia off and on-no tx currently BACK PAIN Dysmetabolic syndrome hyperglycemia Esophageal reflux hiatal hernia Essential hypertension, benign Hormone replacement therapy, postmenopausal Dr Cotton Hyperlipidemia Hypothyroidism LVH (left ventricular hypertrophy) resolved Myelodysplastic syndrome (HCC) macrocytosis w/o anemia, leukopenia, thrompocytopenia Obstructive sleep apnea Osteopenia Snoring Unspecified sleep apnea on Bipap Vitamin D deficiency PAST SURGICAL HISTORY Procedure Laterality Date APPENDECTOMY COLONOSCOP W/ OR W/O [facility] SPEC 12/20/2005 diverticulosis, repeat 2016 COLONOSCOP W/ OR W/O [facility] SPEC 06/22/16 Colonoscopy EGD W/O [facility] SPECIMEN W/BX 05/04/09 EGD W/O OR W/BRUSH/WASH 03/01/15 EGD LIGATE FALLOPIAN TUBE 1970 Tubal ligation PAST SURGICAL HISTORY OF 1994 anyurism left hand /vein patching PAST SURGICAL HISTORY OF 10/22/2015 left foot surgery REMOVE TONSILS/ADENOIDS,<12 Y/O REMV CATARACT EXTRACAP,INSERT LENS 06/16/14 AND 06/23/14 Cataract Extraction with PC IOL Dr Granados [facility] ROS: Constitutional: Denies episodes of fever and night sweats. Normal appetite. Neuro: Denies ALVARADO, vertigo, dizziness and imbalance. Denies symptoms of neuropathy. HEENT: No recent change in voice, vision or hearing. Resp: Denies cough, wheeze and hemoptysis. Denies shortness of breath at rest. Denies LEDBETTER. CVS: Denies exertional chest pain, PND, orthopnea and LE edema. GI: Denies dysgeusia. Denies symptoms of stomatitis. Denies dysphagia and odynophagia. Denies reflux, n/v, change in bowel habits and abdominal pain. : Denies dysuria or gross hematuria. No symptoms of bladder outlet obstruction. Endo: Denies hot flashes. Denies polyuria and polydipsia. Denies heat and cold intolerance. Musculoskeletal: See above. Derm: Denies rash. Denies jaundice and diffuse pruritis. Heme: Denies unusual bleeding and unexplained bruising. Psych: Normal mood. PHYSICAL EXAM: Vitals: Blood pressure 121/75, pulse 66, temperature 37 ?C (98.6 ?F), temperature source Temporal, height 167.6 cm (5' 6 ), weight 75.8 kg (167 lb), last menstrual period 01/04/1994. Well-appearing and in no acute distress. EYES: Sclerae are anicteric bilaterally. ENT: Oral mucosa is unremarkable. There is no sign of thrush, mucositis or oral mucosal bleeding. LYMPHATIC: There is no palpable cervical, supraclavicular, axillary or inguinal adenopathy. RESPIRATORY: Inspiratory breath sounds are of normal intensity in all robins. No rales, wheezes or rhonchi. CARDIOVASCULAR: Rhythm is regular. Many fine reticular varicosities of the lower extremities. ABDOMEN: The abdomen is nondistended. No organomegaly. No tenderness. Extremities: No swelling or edema. SKIN: No jaundice or rash. No petechiae. NEUROLOGIC: car retarder operator II-XII are grossly intact. No focal motor weakness. LABS: Reviewed CBC dating to 2004. ASSESSMENT/PLAN: (D53.9) Macrocytic anemia (primary encounter diagnosis) (D64.9) Anemia, unspecified type Assessment: The patient is an 81-year-old female who was originally evaluated by my colleague 10 years ago for mild pancytopenia. There has not been any substantial change in her counts since that time. Her PCP has performed a work-up including B12, folate, iron testing. I suggested a stepwise further work-up including other nutritional deficiencies. No clear indication for bone marrow biopsy right now. If no other etiology evident then we could consider bone marrow biopsy but she declined 10 years ago. Plan: -Labs today. -She will contacted by phone with results and any further work up that may be indicated. I spent a total of 30 minutes on the date of the service which included preparing to see the patient, [id number] patient care, completing clinical documentation, obtaining and/or reviewing separately obtained (more content not included)... [facility] 05-26-2022 History of Presen t illness Narrative Patient referred by Dr. Rangel for thrombocytopenia. The impression and plan will be communicated by way of the shared electronic record or faxed under separate cover letter. HPI: The patient is an 81-year-old female with a past medical history significant for and for hyperlipidemia, hypertension, sleep apnea, chronic rhinitis, GERD, gastritis, hypothyroidism and osteopenia who is referred today for evaluation of thrombocytopenia Her most recent CBC on 04/11/2022 demonstrated total white count of 4200. Her blood cell count was mildly decreased at 3,700,000/mm . Hemoglobin was normal at 12.6 g/dL. MCV was 103.2 fL. Platelet count 235,000. Differential showed mild increase in monocyte percentage and eosinophil percentage. More fatigued. Stiffness and pain in fingers. Chronic b/l hip pain. Has to alternate sides at night when sleeping due to pain. PAST MEDICAL HISTORY Diagnosis Date Arrhythmia off and on-no tx currently BACK PAIN Dysmetabolic syndrome hyperglycemia Esophageal reflux hiatal hernia Essential hypertension, benign Hormone replacement therapy, postmenopausal Dr Cotton Hyperlipidemia Hypothyroidism LVH (left ventricular hypertrophy) resolved Myelodysplastic syndrome (HCC) macrocytosis w/o anemia, leukopenia, thrompocytopenia Obstructive sleep apnea Osteopenia Snoring Unspecified sleep apnea on Bipap Vitamin D deficiency PAST SURGICAL HISTORY Procedure Laterality Date APPENDECTOMY COLONOSCOP W/ OR W/O [facility] SPEC 12/20/2005 diverticulosis, repeat 2016 COLONOSCOP W/ OR W/O [facility] SPEC 06/22/16 Colonoscopy EGD W/O [facility] SPECIMEN W/BX 05/04/09 EGD W/O OR W/BRUSH/WASH 03/01/15 EGD LIGATE FALLOPIAN TUBE 1970 Tubal ligation PAST SURGICAL HISTORY OF 1994 anyurism left hand /vein patching PAST SURGICAL HISTORY OF 10/22/2015 left foot surgery REMOVE TONSILS/ADENOIDS,<12 Y/O REMV CATARACT EXTRACAP,INSERT LENS 06/16/14 & 06/23/14 Cataract Extraction with PC IOL Dr Granados [facility] ROS: Constitutional: Denies episodes of fever and night sweats. Normal appetite. Neuro: Denies ALVARADO, vertigo, dizziness and imbalance. Denies symptoms of neuropathy. HEENT: No recent change in voice, vision or hearing. Resp: Denies cough, wheeze and hemoptysis. Denies shortness of breath at rest. Denies LEDBETTER. CVS: Denies exertional chest pain, PND, orthopnea and LE edema. GI: Denies dysgeusia. Denies symptoms of stomatitis. Denies dysphagia and odynophagia. Denies reflux, n/v, change in bowel habits and abdominal pain. : Denies dysuria or gross hematuria. No symptoms of bladder outlet obstruction. Endo: Denies hot flashes. Denies polyuria and polydipsia. Denies heat and cold intolerance. Musculoskeletal: See above. Derm: Denies rash. Denies jaundice and diffuse pruritis. Heme: Denies unusual bleeding and unexplained bruising. Psych: Normal mood. PHYSICAL EXAM: Vitals: Blood pressure 121/75, pulse 66, temperature 37 C (98.6 F), temperature source Temporal, height 167.6 cm (5' 6 ), weight 75.8 kg (167 lb), last menstrual period 01/04/1994. Well-appearing and in no acute distress. EYES: Sclerae are anicteric bilaterally. ENT: Oral mucosa is unremarkable. There is no sign of thrush, mucositis or oral mucosal bleeding. LYMPHATIC: There is no palpable cervical, supraclavicular, axillary or inguinal adenopathy. RESPIRATORY: Inspiratory breath sounds are of normal intensity in all robins. No rales, wheezes or rhonchi. CARDIOVASCULAR: Rhythm is regular. Many fine reticular varicosities of the lower extremities. ABDOMEN: The abdomen is nondistended. No organomegaly. No tenderness. Extremities: No swelling or edema. SKIN: No jaundice or rash. No petechiae. NEUROLOGIC: car retarder operator II-XII are grossly intact. No focal motor weakness. LABS: Reviewed CBC dating to 2004. ASSESSMENT/PLAN: (D53.9) Macrocytic anemia (primary encounter diagnosis) (D64.9) Anemia, unspecified type Assessment: The patient is an 81-year-old female who was originally evaluated by my colleague 10 years ago for mild pancytopenia. There has not been any substantial change in her counts since that time. Her PCP has performed a work-up including B12, folate, iron testing. I suggested a stepwise further work-up including other nutritional deficiencies. No clear indication for bone marrow biopsy right now. If no other etiology evident then we could consider bone marrow biopsy but she declined 10 years ago. Plan: -Labs today. -She will contacted by phone with results and any further work up that may be indicated. I spent a total of 30 minutes on the date of the service which included preparing to see the patient, [id number] patient care, completing clinical documentation, obtaining and/or reviewing separately obtained history, performing a medically appropriate examination, counseling and educating the patient/family/caregiver, ordering medications, tests, or procedures, and communicating results to the patient/family/caregiver. Mohinder Friedman DO documented in this encounter [facility] 05-24-2022 Miscellaneous Notes 2nd attempt: LM When pt returns call, please see below. Thank you! Pilar Martinez Attempted to call patient LVM. When patient calls back please schedule in dr. Donnelly next available. Chart to Dr. Idalia Encarnacion LPN Received referral and given to nurses for provider review. DX: THROMBOCYTOPLENIA REF PROV: JOCE RANGEL INS: MEDICARE A & B Patient called stating she wants to see Dr. Friedman. New patient referral received from PCP. Sent fax requesting more info. Patient was seen by Dr. Young in past. Will give to Dr. Young yo review once all info has been received. documented in this encounter [facility] documented as of this encounter (statuses as of 05/26/2022) [facility]12-01-2016 History of Past illness Narrative* Problem Noted Date Resolved Date Encounter for colorectal cancer screening 201506/22/2016 Abdominal pain, unspecified site 06/17/2013 documented as of this encounter (statuses as of 05/26/2022) [facility] History of Past illness Narrative* Problem Noted Date Resolved Date Encounter for colorectal cancer screening 201506/22/2016 Abdominal pain, unspecified site 06/17/2013 documented as of this encounter (statuses as of 06/06/2022) [facility] History of Past illness Narrative* Problem Noted Date Resolved Date Encounter for colorectal cancer screening 201506/22/2016 Abdominal pain, unspecified site 06/17/2013 documented as of this encounter (statuses as of 09/25/2022) [facility] History of Past illness Narrative* Problem Noted Date Resolved Date Encounter for colorectal cancer screening 201506/22/2016 Abdominal pain, unspecified site 06/17/2013 documented as of this encounter (statuses as of 10/18/2022) [facility] History of Past illness Narrative* Problem Noted Date Resolved Date Encounter for colorectal cancer screening 201506/22/2016 Abdominal pain, unspecified site 06/17/2013 documented as of this encounter (statuses as of 10/22/2022) [facility] History of Past illness Narrative* Problem Noted Date Resolved Date Encounter for colorectal cancer screening 201506/22/2016 Abdominal pain, unspecified site 06/17/2013 documented as of this encounter (statuses as of 11/02/2022) [facility] Macrocytic anemia- Primary Unspecified deficiency anemia Anemia, unspecified type Vitamin D deficiency Unspecified vitamin D deficiency [facility] Diagnosis Other pancytopenia (HCC)- Primary Other pancytopenia Thrombocytopenia (HCC) Thrombocytopenia, unspecified Macrocytosis without anemia Other specified diseases of blood and blood-forming organs documented in this encounter [facility] note* Diagnosis Macrocytosis without anemia- Primary Other specified diseases of blood and blood-forming organs Thrombocytopenia (HCC) Thrombocytopenia, unspecified [facility] Diagnosis Thrombocytopenia (HCC)- Primary Thrombocytopenia, unspecified Macrocytosis without anemia Other specified diseases of blood and blood-forming organs documented in this encounter [facility] Summary Purpose Family History No Family History Records FoundNo Family History Records FoundNo Family History Records Found Advance Directives No Advanced Directives Records FoundNo Advanced Directives Records FoundNo Advanced Directives Records Found Additional Source Comments INFORMATION SOURCE (unrecogn ized section and content) DATE CREATED AUTHOR AUTHOR'S ORGANIZ ATION 01/10/2018 [facility] DATE CREATED AUTHOR AUTHOR'S ORGANIZ ATION 11/05/2022 [facility] Source Comments (unrecognize d section and content) In the event this informatio n is protected by the Federal Confidentiality of Alcohol and Drug Abuse Patient Records regulations: The Federal rules restrict any use of the information to criminally investigate or prosecute any alcohol or drug abuse patient.[facility] the event this information is protected by the Federal Confidentiality of Alcohol and Drug Abuse Patient Records regulations: The Federal rules restrict any use of the information to criminally investigate or prosecute any alcohol or drug abuse patient.[facility] the event this information is protected by the Federal Confidentiality of Alcohol and Drug Abuse Patient Records regulations: The Federal rules restrict any use of the information to criminally investigate or prosecute any alcohol or drug abuse patient.[facility] the event this information is protected by the Federal Confidentiality of Alcohol and Drug Abuse Patient Records regulations: The Federal rules restrict any use of the information to criminally investigate or prosecute any alcohol or drug abuse patient.[facility] the event this information is protected by the Federal Confidentiality of Alcohol and Drug Abuse Patient Records regulations: The Federal rules restrict any use of the information to criminally investigate or prosecute any alcohol or drug abuse patient.[facility] the event this information is protected by the Federal Confidentiality of Alcohol and Drug Abuse Patient Records regulations: The Federal rules restrict any use of the information to criminally investigate or prosecute any alcohol or drug abuse patient.[facility] the event this information is protected by the Federal Confidentiality of Alcohol and Drug Abuse Patient Records regulations: The Federal rules restrict any use of the information to criminally investigate or prosecute any alcohol or drug abuse patient.[facility] Reason for Visit (unrecogniz ed section and content) Reason Comments New Patient Evaluation Reason Comments Results Zinc and copper a li ttle low Reason Comments Established Patient Reason Comments BMBX Orders Reason Comments Results Preliminary results of bone marrow biopsy Reason Comments Established Patient 2 week OV, review BM BX results Care Teams (unrecognized sec tion and content) Musical Instrument Maker Or Repairer Relationship Specialty Start Date End Date Joce Rangel MD PCP - General Family Medicine 06/13/16 Nathan, Brimson S [address] [address] Physician Cardiology 11/21/18 Musical Instrument Maker Or Repairer Relationship Specialty Start Date End Date Joce Rangel MD PCP - General Family Medicine 06/13/16 Nathan, Brimson S [address] [place] [address] Physician Cardiology 11/21/18 Musical Instrument Maker Or Repairer Relationship Specialty Start Date End Date Joce Rangel MD PCP - General Family Medicine 06/13/16 Nathan, Brimson S [address] [place] [address] Physician Cardiology 11/21/18 Musical Instrument Maker Or Repairer Relationship Specialty Start Date End Date Gonzalo Brizuela MD [address] [place] [address] PCP - General Internal Medicine 10/02/22 Nathan, Triston S [address] [place] [address] Physician Cardiology 11/21/18 Musical Instrument Maker Or Repairer Relationship Specialty Start Date End Date Gonzalo Brizuela MD [address] [place] [address] PCP - General Internal Medicine 10/02/22 Nathan, Brimson S [address] [place] [address] Physician Cardiology 11/21/18 Musical Instrument Maker Or Repairer Relationship Specialty Start Date End Date Gonzalo Brizuela MD [address] [place] [address] PCP - General Internal Medicine 10/02/22 Nathan, Triston S [address] [place] [address] Physician Cardiology 11/21/18 FOR RECORDS PERTAINING TO PATIENTS WHO ARE OR HAVE BEEN ENROLLED IN A CHEMICAL DEPENDENCY/SUBSTANCEABUSE PROGRAM, SOME INFORMATION MAY BE OMITTED. This clinical summary was aggregated from multiple sources. Caution should be exercised in using it in the provision of clinical care. This summary normalizes information from multiple sources, and as a consequence, information in this document may materially change the coding, format and clinical context of patient data. In addition, data may be omitted in some cases. CLINICAL DECISIONS SHOULD BE BASED ON THE PRIMARY CLINICAL RECORDS. [employer] [facility]. provides no warranty or guarantee of the accuracy or completeness of information in this document.
== END | disposition home or self-care (01) ==
LOC: CVS 10:31
PROVIDERS: PCP Internal Medicine; Referring Provider Internal Medicine Cardiovascular Disease; Visit Provider Internal Medicine Cardiovascular Disease
DX: R07.9 Chest pain, unspecified (principal)
CPT/HCPCS: 93017; 93350

== ENCOUNTER 2024-02-11 16:01 | Outpatient (CLI) | payer MEDICARE, OTHER, SELFPAY ==
[2024-02-11 17:14] LABS: Absolute Lymphocyte Count 0.98 X10^3/uL (0.83-4.51); Absolute Neutrophil Count 2.3 X10^3/uL (2.0-7.7); Basophil# 0.03 X10^3/uL; Basophil% 0.7 % (0-1); Eosinophil# 0.28 X10^3/uL; Eosinophils% 6.8 % (0-5); Hematocrit 38.2 % (37-47); Hemoglobin 12.3 g/dL (12.0-15.0); Lymphocyte # 0.98 X10^3/ul (0.83-4.51); Lymphocyte % 23.7 % (19-41); Mean Corp Hgb Conc 32.2 g/dL (32-36); Mean Corpuscular Hgb 33.4 pg (27.0-32.0); Mean Corpuscular Volume 103.8 fL (81-99); Mean Platelet Vol. 10.7 fl (6.2-12.0); Monocyte# 0.51 X10^3/uL; Monocyte% 12.3 % (0-10); NRBC Flagged by Analyzer 0 % (0-5); Neutrophil # 2.32 X10^3/uL (2.7-7.7); Neutrophil % 56.3 % (47-70); Platelet Count 139 K/mm3 (150-450); RBC Distribution Width CV 11.9 % (11.6-14.6); RBC Distribution Width SD 45.3 fl (35.1-43.9); Red Blood Count 3.68 M/mm3 (4.2-5.4); White Blood Count 4.1 K/mm3 (4.4-11.0)
[2024-02-11 17:23] LABS: Erythrocyte Sedimentation Rate 8 mm/hr (0-30)
[2024-02-11 17:43] LABS: Vitamin B12 431 pg/mL (211-911); Vitamin D,25 Hydroxy 50.9 ng/mL
[2024-02-11 17:46] LABS: Hemoglobin A1c 5.5 % (3.8-5.6)
[2024-02-11 17:50] LABS: AST(SGOT) 19 U/L (15-37); Alanine Aminotransfer ALT/SGPT 23 U/L (13-56); Albumin, Serum 3.3 g/dL (3.2-5.0); Alkaline Phosphatase 76 U/L (45-117); Anion Gap 5 (5-15); BUN 22 mg/dL (7-18); BUN/Creat Ratio 23.3 RATIO (10-20); Calcium,Total 9.1 mg/dL (8.5-10.1); Chloride 107 mmol/L (98-107); Creatinine, Serum 0.95 mg/dL (0.55-1.02); EST Glomerular Filtration Rate 60 mL/min (>60); Est Glom Filt Rate - Afr Amer 73 mL/min (>60); Free T3 1.9 pg/mL (2.18-3.98); Globulin 3.4 g/dL (2.2-4.2); Glucose 89 mg/dL (74-106); Iron 112 ug/dL (50-170); Iron Binding Capacity,Total 313 ug/dL (250-450); PERCENT IRON SATURATION 35.8 % (15.0-55.0); Potassium 4.5 mmol/L (3.5-5.1); Protein, Total 6.7 g/dL (6.4-8.2); Sodium Level 140 mmol/L (136-145); T4 Free Direct 1.13 ng/dL (0.76-1.46); Thyroid Stim Hormone (TSH) 0.37 uIU/mL (0.358-3.74)
== END 2024-02-11 23:59 | disposition home or self-care (01) ==
LOC: LAB 16:02
PROVIDERS: PCP Internal Medicine; Referring Provider Internal Medicine; Visit Provider Internal Medicine
DX: E78.2 Mixed hyperlipidemia (principal); E03.9 Hypothyroidism, unspecified; I10 Essential (primary) hypertension; R53.83 Other fatigue; R73.9 Hyperglycemia, unspecified; E55.9 Vitamin D deficiency, unspecified; I49.1 Atrial premature depolarization
CPT/HCPCS: 36415; 80053; 82306; 82607; 83036; 83540; 83550; 84439; 84443; 84481; 85025; 85652

== ENCOUNTER → 2024-02-12 | Outpatient (CLI) | payer MEDICARE, OTHER, SELFPAY ==
[2024-02-13 07:54] LABS: Vitamin B12 298 pg/mL (211-911); Vitamin D,25 Hydroxy 52.3 ng/mL
[2024-02-15 00:07] LABS: Zinc, WHOLE BLOOD 546 ug/dL (440-860)
[2024-02-15 13:08] LABS: Vitamin D 1,25-Dihydroxy 55.5 pg/mL (24.8-81.5)
== END | disposition home or self-care (01) ==
LOC: LAB 15:39
PROVIDERS: PCP Internal Medicine; Referring Provider Dermatology; Visit Provider Dermatology
DX: L65.0 Telogen effluvium (principal); L64.8 Other androgenic alopecia
CPT/HCPCS: 36415; 82306; 82607; 82652; 82746; 84630

== ENCOUNTER → 2024-02-14 | Outpatient (CLI) | payer MEDICARE, OTHER, SELFPAY ==
--- NOTE | 2024-02-14 16:18 | RAD_ITS ---
INDICATION: cough EXAMINATION/TECHNIQUE: X-RAY - XR Chest 2 Views COMPARISON: January 02, 2006 FINDINGS: LINES/DEVICES: None. LUNGS: No consolidation, edema or effusion. No pneumothorax. MEDIASTINUM AND CARDIOVASCULAR STRUCTURES: Cardiac silhouette not enlarged. Central airways and mediastinal contour are unremarkable. BONES AND SOFT TISSUES: There are degenerative changes of the thoracic spine. RAD/Chest PA and Lateral IMPRESSION: No acute cardiopulmonary process. Electronically Signed: Ashely Hernadez MD at 17:30 EDT ,
== END | disposition home or self-care (01) ==
LOC: RAD 16:11
PROVIDERS: PCP Internal Medicine; Referring Provider Internal Medicine; Visit Provider Internal Medicine
DX: R05.9 Cough, unspecified (principal)
CPT/HCPCS: 71046

== ENCOUNTER → 2024-09-17 | Outpatient (CLI) | payer MEDICARE, OTHER, SELFPAY ==
[2024-09-17 12:30] LABS: Absolute Lymphocyte Count 0.96 X10^3/uL (0.83-4.51); Basophil# 0.02 X10^3/uL; Basophil% 0.6 % (0-1); Eosinophil# 0.12 X10^3/uL; Eosinophils% 3.4 % (0-5); Hematocrit 38.8 % (37-47); Hemoglobin 12.7 g/dL (12.0-15.0); Immature Platelet Fraction 4.1 % (1.0-7.9); Lymphocyte # 0.96 X10^3/ul (0.83-4.51); Lymphocyte % 27.1 % (19-41); Mean Corp Hgb Conc 32.7 g/dL (32-36); Mean Corpuscular Hgb 33.5 pg (27.0-32.0); Mean Corpuscular Volume 102.4 fL (81-99); Mean Platelet Vol. 11.3 fl (6.2-12.0); Monocyte# 0.39 X10^3/uL; NRBC Flagged by Analyzer 0 % (0-5); Neutrophil # 2.02 X10^3/uL (2.7-7.7); Neutrophil % 57.1 % (47-70); Platelet Count 128 K/mm3 (150-450); RBC Distribution Width CV 11.6 % (11.6-14.6); RBC Distribution Width SD 43.5 fl (35.1-43.9); RET-HE 37.2 pg (30-35); Red Blood Count 3.79 M/mm3 (4.2-5.4); Reticulocyte Count 1.15 % (0.5-1.5); White Blood Count 3.5 K/mm3 (4.4-11.0)
[2024-09-17 13:38] LABS: Hemoglobin A1c 5.7 % (<=5.6)
[2024-09-17 14:00] LABS: ALB/GLOB Ratio 2.1 RATIO (0.9-2.4); AST(SGOT) 20 U/L (<=31); Alanine Aminotransfer ALT/SGPT 16 U/L (<=34); Albumin, Serum 4.3 g/dL (3.4-4.8); Alkaline Phosphatase 67 U/L (35-104); Anion Gap 9 (5-15); BUN 19 mg/dL (4-19); BUN/Creat Ratio 21.8 RATIO (10-20); Calcium 9.3 mg/dL (7.6-11.0); Chloride 106 mmol/L (96-108); Creatinine, Serum 0.9 mg/dL (0.6-1.0); EST Glomerular Filtration Rate 66 (>60); Estradiol 51.8 pg/mL; Ferritin 28 ng/mL (22-378); Folates, Serum 9.16 ng/mL (4.60-34.80); Free T3 2.3 pg/mL (2.18-3.98); Glucose 99 mg/dL (70-99); Protein, Total 6.3 g/dL (5.9-8.4); Sodium Level 142 mmol/L (133-145); Total Bilirubin 0.56 mg/dL (0.00-1.30); Vitamin B12 387 pg/mL (180-914); Vitamin D,25 Hydroxy 56.3 ng/mL (30-100)
[2024-09-18 13:08] LABS: CRP, High Sensitivity 0.57 mg/L (0.00-3.00)
[2024-09-18 15:31] LABS: Carbon Dioxide 26.5 mmol/L (22.0-29.0)
[2024-09-18 19:20] LABS: Iron 105 ug/dL (50-170); Iron Binding Capacity,Total 327 ug/dL (250-450); Iron Binding Capacity,Unsat 222 ug/dL (228-428)
[2024-09-23 13:08] LABS: DHEA Sulfate 71.1 ug/dL (13.9-142.8); GGTP 12 IU/L (0-60); Insulin Level 4.1 uIU/mL (2.6-24.9); Testosterone, Free 0.17 ng/dL (0.10-0.85); Testosterone, Total 8 ng/dL (2-45); Thyroid Peroxidase AB 15 IU/mL (0-34)
== END | disposition home or self-care (01) ==
LOC: LAB 11:43
PROVIDERS: PCP Internal Medicine
DX: R94.5 Abnormal results of liver function studies (principal); E55.9 Vitamin D deficiency, unspecified; R53.83 Other fatigue; E03.9 Hypothyroidism, unspecified; D69.6 Thrombocytopenia, unspecified; D51.8 Other vitamin B12 deficiency anemias; H73.0 Acute myringitis; R73.09 Other abnormal glucose
CPT/HCPCS: 36415; 80053; 82306; 82607; 82627; 82670; 82728; 82746; 82977; 83001; 83036; 83525; 83540; 83550; 84270; 84402; 84403; 84439; 84443; 84481; 85025; 85045; 86141; 86376; 82626

== ENCOUNTER → 2025-03-25 | Outpatient (CLI) | payer MEDICARE, OTHER, SELFPAY ==
--- NOTE | 2025-03-25 14:57 | BI_ITS ---
EXAM: SCRN MAMM (CAD)W/CAITY BILAT DATE: 03/25/2025 CLINICAL HISTORY: F, Age 84 y/o , BREAST CANCER SCREENING TECHNIQUE: Procedure Code: [id number] Modality: MG Procedure: SCRN MAMM (CAD)W/CAITY BILAT COMPARISON: Prior exam(s) dated 07/04/2016 and 06/24/2015. FINDINGS: TISSUE DENSITY: The breasts are heterogeneously dense, which may obscure small masses. Bilateral Breast Mammographic Findings: There are no suspicious masses, suspicious clustered microcalcifications, architectural distortion or secondary signs of malignancy identified in either breast. Benign-appearing macrocalcifications are seen in both breast benign round microcalcifications are seen in both breasts. Stable lobulated nodular masslike densities are seen in the medial aspect of the right breast. BI/SCRN MAMM (CAD)W/CAITY BILAT IMPRESSION: Benign screening mammogram. OVERALL FINAL ASSESSMENT BI-RADS 2: BENIGN RECOMMENDATION: Routine annual follow-up in 1 Year A letter with findings and recommendations will be mailed to the patient. Reading Location: [id number]
--- NOTE | 2025-03-25 15:00 | BD_ITS ---
PROCEDURE: DEXA BONE DENSITY STUDY 03/25/2025 REASON FOR EXAM: OSTEOPOROSIS, AGE OVER 65 F, age 84 y/o . Postmenopausal. TECHNIQUE: Procedure Code: BDDBD Modality: DX Procedure: DEXA BONE DENSITY STUDY COMPARISON: None FINDINGS: BMD and T-SCORES Lumbar spine: 0.857 g/cm2, T-score -1.7 Levels: L1 through L4 Left femoral neck: 0.635 g/cm2, T-score -1 9 Femoral neck comparison data not recommended for monitoring change. Left total hip: 0.743 g/cm2, T-score -1.6 Right femoral neck: 0.660 g/cm2, T-score -1.7 Femoral neck comparison data not recommended for monitoring change. Right total hip: 0.725 g/cm2, T-score -1.8 The World Health Organization has defined the following categories based on bone density: Normal bone density: T-score equal to or greater than -1.0 Osteopenia: T-score between -1.0 and -2.5 Osteoporosis: T-score equal to or less than -2.5 FRAX (or Comparable) Fracture Risk Assessment: 10 Year Probability of Fracture: Major Osteoporotic Fracture: 16% Hip Fracture: 4.7% (Note: FRAX is not to be reported in setting of normal range bone density, osteoporosis on DEXA, known history of osteoporosis, prior osteoporotic hip or vertebral fracture, or for any patient undergoing pharmacological treatment for bone loss.) The National Osteoporosis Foundation (NOF) recommends pharmacological treatment for patients with a FRAX 10-year risk of 3% or higher for a hip fracture, or 20% or higher for a major osteoporotic fracture, to prevent osteoporosis and reduce fracture risk. The patient does meet the pharmacological treatment recommendations for prevention of osteoporosis. BD/Dexa Bone Density Study IMPRESSION: OSTEOPENIA. Recommend follow-up as clinically warranted. Reading Location[id number]
== END | disposition home or self-care (01) ==
LOC: OPBD 14:56
PROVIDERS: PCP Internal Medicine; Referring Provider Internal Medicine; Visit Provider Internal Medicine
DX: Z12.31 Encounter for screening mammogram for malignant neoplasm of breast (principal); Z78.0 Asymptomatic menopausal state; M81.0 Age-related osteoporosis without current pathological fracture
CPT/HCPCS: 77063; 77067; 77080

== ENCOUNTER → 2025-04-03 | Outpatient (CLI) | payer MEDICARE, OTHER, SELFPAY ==
[2025-04-03 12:29] LABS: Hematocrit 38.7 % (37-47); Hemoglobin 12.6 g/dL (12.0-15.0); Immature Granulocytes Count 0.000 X10^3/uL (0.0-0.0); Mean Corp Hgb Conc 32.6 g/dL (32-36); Mean Corpuscular Volume 102.7 fL (81-99); Mean Platelet Vol. 11.3 fl (6.2-12.0); NRBC Flagged by Analyzer 0 % (0-5); Platelet Count 128 K/mm3 (150-450); RBC Distribution Width CV 11.8 % (11.6-14.6); RBC Distribution Width SD 44.4 fl (35.1-43.9); Red Blood Count 3.77 M/mm3 (4.2-5.4); White Blood Count 3.3 K/mm3 (4.4-11.0)
[2025-04-03 13:12] LABS: AST(SGOT) 20 U/L (<=31); Alanine Aminotransfer ALT/SGPT 15 U/L (<=34); Albumin, Serum 4.1 g/dL (3.4-4.8); Alkaline Phosphatase 75 U/L (35-104); Anion Gap 10 (5-15); BUN 19 mg/dL (4-19); BUN/Creat Ratio 21.2 RATIO (10-20); Calcium,Total 9.2 mg/dL (7.6-11.0); Carbon Dioxide 24.1 mmol/L (21.0-32.0); Chloride 108 mmol/L (98-108); Cholesterol 214 mg/dL (<=200); Globulin 2.5 g/dL (2.2-4.2); Glucose 96 mg/dL (70-99); Low Density Lipoprotein Calc. 123 mg/dL; Potassium 4.0 mmol/L (3.3-5.1); Triglycerides 95 mg/dL; Very Low Density Lipoprotein 19 mg/dL (5-40); cholesterol:hdl ratio screen 2.96
[2025-04-03 13:59] LABS: Free T3 2.3 pg/mL (2.18-3.98); Vitamin D,25 Hydroxy 45.5 ng/mL (30-100)
== END | disposition home or self-care (01) ==
LOC: LAB 10:58
PROVIDERS: PCP Internal Medicine; Referring Provider Internal Medicine; Visit Provider Internal Medicine
DX: Z13.220 Encounter for screening for lipoid disorders (principal); I10 Essential (primary) hypertension; E78.2 Mixed hyperlipidemia; E03.9 Hypothyroidism, unspecified; E55.9 Vitamin D deficiency, unspecified
CPT/HCPCS: 36415; 80053; 80061; 82306; 84439; 84443; 84481; 85025